=== PATIENT | male | born 1995 | race Caucasian/White ===

== ENCOUNTER 2021-04-05 11:40 | Outpatient (REF) | payer BC, SELFPAY ==
--- NOTE | ~2021-04-05 | XR_ITS ---
EXAMINATION: XR LUMBOSACRAL SPINE CLINICAL INFORMATION: Low back pain COMPARISON: None TECHNIQUE: Three views of the lumbosacral spine. XR/XR lumbar spine 2-3V FINDINGS AND IMPRESSION: The vertebral bodies have normal height and alignment. There is straightening of the lumbar lordosis, possibly due to paraspinal muscle spasm. The disc spaces are maintained. No evidence of degenerative disc disease. No pars interarticularis defect or vertebral compression fracture. The anterior and posterior elements are intact. No lytic or osteoblastic lesion. Sacrum and sacroiliac joints are normal. Soft tissues are grossly normal.
== END 2021-04-05 11:41 | disposition home or self-care (01) ==
LOC: HO.HMGCX 11:40
PROVIDERS: Visit Provider Nurse Practitioner Family
DX: M54.50 Low back pain, unspecified (principal)
CPT/HCPCS: 72100

== ENCOUNTER 2021-04-29 12:30 | Outpatient (REF) | payer BC, SELFPAY ==
[2021-04-29 14:02] LABS: Appearance Urine CLEAR; Color Urine YELLOW; Glucose Urine UA NEG (NEG); Leukocyte Esterase Urine NEG (NEG); Nitrite Urine NEG (NEG); Specific Gravity - Urine 1.025 (1.005-1.025); Urine Blood NEG (NEG); Urine Ketones NEG (NEG); Urine Protein NEG (NEG-TRACE)
[2021-04-29 14:19] LABS: Alanine Aminotransferase 54 U/L (0-40); Albumin Level 4.4 g/dL (3.5-5.0); Alkaline Phosphatase 83 U/L (39-117); Anion Gap 14 (12-20); Aspartate Amino Transferase 24 U/L (5-37); Bilirubin Total 0.6 mg/dL (0.0-1.0); Blood Urea Nitrogen 17 mg/dL (9-16); Carbon Dioxide 25 mmol/L (22-29); Chloride 107 mmol/L (96-108); Cholesterol 186 mg/dL; Estimated Glomerular Filt Rate > 60; Glucose Fasting 94 mg/dL (60-99); HDL Cholesterol 37 mg/dL; LDL Cholesterol Calculated 131 mg/dl; Potassium 4.6 mmol/L (3.3-5.1); Sodium 141 mmol/L (135-145); Total Protein 7.1 g/dL (6.5-8.0); Triglycerides 90 mg/dL
[2021-04-29 14:30] LABS: TSH reflex Free T4 1.37 uIU/mL (0.32-4.0)
== END 2021-04-29 12:31 | disposition home or self-care (01) ==
LOC: HO.HMGCLDS 12:30
PROVIDERS: Visit Provider Nurse Practitioner Family
DX: Z00.00 Encounter for general adult medical examination without abnormal findings (principal)
CPT/HCPCS: 36415; 80053; 80061; 81003; 84443

== ENCOUNTER 2021-06-19 11:00 | Outpatient (RCR) | payer BC, SELFPAY ==
--- NOTE | 2021-02-05 15:07 | MHC.PT.EP ---
[facility] [place] Office [place] Office [place] Office [address] [phone] F: [phone] F: [phone] F: [phone] F: [phone] Physical Therapy Plan of Care Date of Evaluation: Date of Surgery: n/a Diagnosis: sciatica Assessment: Patient is a 25 year old R handed female who presents with s/s consistent with sciatica. He does not currently work and is mostly sitting/sedentary during the day. Patient past medical history is unremarkable. Current impairments include pain, body mechanics, activity tolerance and functional mobility. Functional limitations include decreased ability to walk, stand, transfer, squat, lift, carry, bend, negotiate stairs, and perform weight bearing activities.. Patient is motivated with good rehab potential. Skilled PT will address impairments and functional limitations in order to achieve goals. Frequency and Duration: The patient will be seen 2x/week for 5 weeks Short Term Goals: I with HEP - 2 weeks Demo proper squat mechanics - 3 weeks Normal gastroc flexiblity - 3 weeks Care Home Goals: 90/90 lacking < 20 - 5 weeks Oswestry 10% or less - 5 weeks Treatment Plan: Modalities to reduce pain, spasms and effusion. Manual therapy to restore motion and function. Therapeutic exercise to improve strength and flexibility. Neuromuscular re-education for posture and balance. Therapeutic activities to return to functional activities of daily living. Electronically signed by: Darren Banks PT Please sign and return to therapist. Thank you for your referral.
--- NOTE | 2021-10-10 09:26 | MHC.PT.DC ---
[facility] [place] Office [place] Office [place] Office [address] Xu Barrios [address] [phone] F: [phone] F: [phone] F: [phone] F: [phone] Physical Therapy Discharge Report Diagnosis: sciatica Date of Surgery: n/a Date of Evaluation: 02/04/21 Date of Discharge: 08/11/21 Treatments to Date: 14 Cancellations to Date: No Shows to Date: Discharge Status: Improved Function Independent with HEP Discharge Summary: Pt is I with HEP and has good understanding of how to manage s/s. We decided to d/c to HEP at this time. 06/19/21: s/s are still present to lesser degree. stable with daily activities. we are still working with body mechanics/postural awareness as pt still has difficulty controlling position of lumbar spine and pelvic with squatting activities. 06/07/21: pt progressing with leg strength, reduced discomfort with daily/work activities. he has been responding well since transition to traction + strength and stretch program. 05/31/21: pt progressing very well overall with skilled PT with focus on LE/core strength. Planning to golf this . 05/24/21: pt progressing well with low back pain. still with some discomfort in legs possible due to fatigue and lack of physical activity during work week. 05/16/21: educated thoroughly on HEP and attempt to reduce apparent discal pathology of spine. assess response NV. 05/03/21: we decided to [place] [facility], as pt was responding well to this before we pursued imaging to rule out any contraindications. we will assess response NV. 04/29/21: pt with less s/s overall. managing well with stretching program. encouraged him to work hip/core strength as well. 04/26/21: pt with some s/s into R LE following train ride. encouraged to stretch through weekend and to perform MARANDA as indicated. educated in centralization Progressing well but still requires significant cues for neutral spine. Follows cues well and able to improved independence within today's appointment. Electronically signed by: Darren Banks, PT Please sign and return to therapist. Thank you for your referral.
== END 2021-10-10 09:26 | disposition home or self-care (01) ==
LOC: HO.PTCHIC 11:00
PROVIDERS: PCP Nurse Practitioner Family; Visit Provider Nurse Practitioner Family
DX: M54.30 Sciatica, unspecified side (principal)
CPT/HCPCS: 97012; 97110; 97112; 97140; 97161; 97530

== ENCOUNTER 2022-04-07 10:42 | Outpatient (REF) | payer BC, SELFPAY ==
[2022-04-07 13:50] LABS: MANUAL DIFF FLAG NO
[2022-04-07 14:05] LABS: Basophils Absolute Auto 0.1 X10*3/uL (0.0-0.2); Basophils Percent Auto 0.7 % (0-2); Eosinophils Absolute Auto 0.1 X10*3/uL (0.0-0.4); Eosinophils Percent Auto 1.4 % (0-4); Hematocrit 47.6 % (42.0-52.0); Hemoglobin 15.7 g/dl (14.0-18.0); Imm Gran Abs Auto 0.05 X10*3/uL (0.00-0.03); Imm Gran Pct Auto 0.6 % (0.0-0.4); Lymphocytes Absolute Auto 2.1 X10*3/uL (1.2-4.9); Lymphocytes Percent Auto 23.2 % (20-40); Mean Corpuscular Hemoglobin 28.4 pg (27.0-33.0); Mean Corpuscular Volume 86.1 fL (80.0-98.0); Mean Platelet Volume 11.3 fL (9.4-12.4); Monocytes Absolute Auto 0.8 X10*3/uL (0.1-1.2); Monocytes Percent Auto 8.3 % (2-11); Neutrophils Percent Auto 65.8 % (45-73); Platelet Count 250 X10*3/uL (160-400); Red Blood Count 5.53 X10*6/uL (4.60-5.80); Red Cell Distribution Width 12.4 % (11.0-16.0); White Blood Count 9.1 X10*3/uL (4.8-10.8)
[2022-04-07 14:08] LABS: Appearance Urine Turbid; Color Urine Yellow; Glucose Urine UA Negative (Negative); Leukocyte Esterase Urine Negative (Negative); Nitrite Urine Negative (Negative); PH 5.5 (5.0-9.0); Specific Gravity - Urine 1.025 (1.005-1.025); Urine Blood Negative (Negative); Urine Ketones Negative (Negative); Urine Protein Negative (Neg-Trace)
[2022-04-07 14:51] LABS: Alanine Aminotransferase 29 U/L (0-40); Albumin Level 4.2 g/dL (3.5-5.0); Alkaline Phosphatase 86 U/L (39-117); Anion Gap 11 (12-20); Aspartate Amino Transferase 15 U/L (5-37); Bilirubin Total 0.4 mg/dL (0.0-1.0); Blood Urea Nitrogen 15 mg/dL (9-16); Calcium 9.3 mg/dL (8.4-10.2); Carbon Dioxide 27 mmol/L (22-29); Chloride 107 mmol/L (96-108); Cholesterol 180 mg/dL; Estimated Glomerular Filt Rate > 60; Glucose Fasting 93 mg/dL (60-99); Glucose Random 92 mg/dL (60-115); HDL Cholesterol 36 mg/dL; LDL Cholesterol Calculated 124 mg/dl; Potassium 4.4 mmol/L (3.3-5.1); Sodium 141 mmol/L (135-145); Total Protein 6.6 g/dL (6.5-8.0); Triglycerides 100 mg/dL
[2022-04-07 14:58] LABS: TSH reflex Free T4 1.27 uIU/mL (0.32-4.0)
== END 2022-04-07 10:43 | disposition home or self-care (01) ==
LOC: HO.HMGCLDS 10:42
PROVIDERS: PCP Nurse Practitioner Family; Visit Provider Nurse Practitioner Family
DX: I10 Essential (primary) hypertension (principal)
CPT/HCPCS: 36415; 80053; 80061; 81003; 84443; 85025

== ENCOUNTER → 2022-08-19 09:58 | Outpatient (BNVA) | payer BC, SELFPAY | PROVIDERS: PCP Nurse Practitioner Family; Visit Provider Nurse Practitioner Family ==

== ENCOUNTER 2022-10-06 15:28 | Outpatient (AMB) | payer BC, SELFPAY ==
[2022-10-06 15:37] VITALS: BP 132/78; PULSE 71; O2SAT 97; BMI 30.8
--- NOTE | 2022-10-06 15:37 | MHC.OFFVIS ---
Intake Vital Signs 10/06/22 15:37 Height 6 ft Weight 227 lb 2 oz BMI 30.8 Intake Visit Reasons: Abdominal pain Intake Note: pt is here for lower right back pain that he says is off and on for about 2 months or so Allergies No Known Allergies Allergy (Verified 08/19/22 10:03) PFSH Surgical History (Updated 08/19/22 @ 10:05 by Davina March CMA) [place] teeth removed Family History (Updated 08/19/22 @ 10:06 by Davina March CMA) Father Skin cancer HTN (hypertension) Social History (Updated 08/19/22 @ 10:06 by Davina March CMA) Housing: House Alcohol intake: current Alcohol intake frequency: holidays/special occasions only Patient Tobacco Use Status: Never used Tobacco e-Cigarette/Vaping Use: Never Used Second Hand Smoke Exposure: No service: No Current occupational status: employed Current occupation: [employer] Current occupational exposures/hazards: No Cognitive needs: No Hearing needs: No Vision needs: No Coding Diagnoses
--- NOTE | 2022-10-06 15:40 | A.OFFPC_ITS ---
Vital Signs 10/06/22 15:37 Height 6 ft Weight 227 lb 2 oz BMI 30.8 BP 132/78 Blood Pressure Location Rt brachial Position Sitting Pulse 71 Pulse Source Pulse Oximeter Pulse Oximetry (%) 97 Oxygen Delivery Method Room Air Intake Visit Reasons: Abdominal pain Intake Note: pt is here for lower right back pain that he says is off and on for about 2 months or so Allergies No Known Allergies Allergy (Verified 10/06/22 15:40) Medication List - Last Reconciled 10/06/22 by Moises Lynn [facility] cholecalciferol (vitamin D3) 25 mcg PO DAILY loratadine (Claritin) 10 mg PO DAILY 90 days losartan 50 mg PO DAILY propranolol ER 80 mg PO DAILY Tobacco use date assessed: 10/06/22 Dental Screening Dental Screen Date: 10/06/22 Did you have a dental visit in the last 12 months?: Yes Did you have a dental problem in the last 6 months where you did not have access to dental care?: No Was dental information given to patient?: Patient has dentist HPI Abdominal pain HPI Details HTN: Blood pressure is stable, managed with losartan 50mg and propranolol 80mg. Denies chest pain, shortness of breath, and dizziness. Pt c/o right flank pain. He reports that the pain is worse when he drinks alcohol. Pt does not have a hx of kidney stones. Will order renal US. Denies fever, chills, and hematuria. Pt has a new sexual partner and would like STD testing, though denies any symptoms. Will order. Pt reports chronic sinusitis. Will order sinus xr and refer to ENT. [facility] Surgical History (Updated 08/19/22 @ 10:05 by Davina March CMA) [place] teeth removed Family History (Updated 08/19/22 @ 10:06 by Davina aMrch CMA) Father Skin cancer HTN (hypertension) Social History (Updated 08/19/22 @ 10:06 by Davina March CMA) Housing: House Alcohol intake: current Alcohol intake frequency: holidays/special occasions only Patient Tobacco Use Status: Never used Tobacco e-Cigarette/Vaping Use: Never Used Second Hand Smoke Exposure: No service: No Current occupational status: employed Current occupation: [employer] Current occupational exposures/hazards: No Cognitive needs: No Hearing needs: No Vision needs: No Questionnaire Thrive Questionnaire Date Thrive assessed: 04/30/22 LIAM-7 AMB Questionnaire LIAM-7 Date LIAM - 7 assessed: 04/30/22 Source: Developed by Drs. Mario Englsih, Becca Rehman, Natalio Gunderson and colleagues, with an educational maxine from [employer]. Review of Systems Const Reports as per HPI Physical exam (Primary Care) Vital Signs: Last Vital Signs Pulse 71 10/06/22 15:37 BP 132/78 10/06/22 15:37 Pulse Ox 97 10/06/22 15:37 Oxygen Delivery Method Room Air 10/06/22 15:37 BMI result Body Mass Index 30.8 Tobacco/Smoking Status: Tobacco use Status Tobacco use date assessed 10/06/22 10/06/22 15:43 Patient Tobacco Use Status Never used Tobacco 10/06/22 15:40 e-Cigarette/Vaping Use Never Used 10/06/22 15:40 Thrive Assessment: Date of Thrive Assessment Date Thrive assessed 04/30/22 10/06/22 15:40 Const General: cooperative Orientation/consciousness: patient oriented x3 Resp Effort & Inspection: normal respiratory effort Auscultation: clear to auscultation bilaterally Cardio Rate: regular rate Rhythm: regular rhythm Heart sounds: S1 normal heart sound present and S2 normal heart sound present General: Yes no CVA tenderness Back/Spine/Pelvis Other: no increase in discomfort with turning upper torso side to side, and palpation to lower transverse back Back: no CVA tenderness Neuro General: patient oriented x3 Psych Appearance: grossly normal Mental Status: mental status grossly normal Speech and movement: Normal speech and movement present Affect: normal affect Attitude: cooperative Thought process: Normal thought process present Thought content: Normal thought content present Insight: Good insight present (Psych) Judgement: Good judgement present (Psych) Assessment and Plan Assessment & Plan (1) Right flank pain: Code(s): R10.9 - Unspecified abdominal pain Plan: US ordered (2) HTN (hypertension): Code(s): I10 - Essential (primary) hypertension Plan: Labs ordered (3) Screening for STD (sexually transmitted disease): Code(s): Z11.3 - Encounter for screening for infections with a predominantly sexual mode of transmission Plan: STD testing ordered (4) Chronic sinusitis: Code(s): J32.9 - Chronic sinusitis, unspecified Plan: XR ordered, referred to ENT Plan The patient agreed to the use of a medical laboratory specialist for this encounter. Scribed for NEHA Yancey- by Anna Herr medical laboratory specialist, on 10/06/2022 at 15:50 EST. Orders: Orders US renal RT Today R10.9 - Unspecified abdominal pain Comprehensive Met. Panel Today I10 - Essential (primary) hypertension, R10.9 - Unspecified abdominal pain Complete Blood Count Auto Diff Today I10 - Essential (primary) hypertension, R10.9 - Unspecified abdominal pain UA CC w/rflx Micro + Cult Today I10 - Essential (primary) hypertension, R10.9 - Unspecified abdominal pain CT NG by PCR Today Z11.3 - Encounter for screening for infections with a predominantly sexual mode of transmission HIV Ab/Ag Today Z11.3 - Encounter for screening for infections with a predominantly sexual mode of transmission Syphilis Screen Today Z11.3 - Encounter for screening for infections with a predominantly sexual mode of transmission Urine Culture Today R10.9 - Unspecified abdominal pain XR sinus min 3V Today J32.9 - Chronic sinusitis, unspecified Referrals Ear/Nose/Throat Referral J32.9 - Chronic sinusitis, unspecified Coding Level of Care Code Est Pt Level 3 (72660) Diagnoses Right flank pain R10.9 HTN (hypertension) I10 Screening for STD (sexually transmitted disease) Z11.3 Chronic sinusitis J32.9
== END 2022-10-06 16:17 | disposition home or self-care (01) ==
PROVIDERS: PCP Nurse Practitioner Family; Visit Provider Nurse Practitioner Family
DX: R10.9 Unspecified abdominal pain (principal); I10 Essential (primary) hypertension; Z11.3 Encounter for screening for infections with a predominantly sexual mode of transmission; J32.9 Chronic sinusitis, unspecified
CPT/HCPCS: 99213

== ENCOUNTER 2022-10-07 12:56 | Outpatient (REF) | payer BC, SELFPAY ==
--- NOTE | ~2022-10-07 | XR_ITS ---
EXAMINATION: XR SINUSES CLINICAL INFORMATION: Chronic sinusitis COMPARISON: Sinus x-rays February 13, 2010 TECHNIQUE: 3 views of the sinuses were obtained. FINDINGS: Frontal sinuses are well aerated. Maxillary sinuses are well aerated. Ethmoid sinuses appear well aerated. Mastoid air cells are well aerated. No acute osseous abnormality. XR/XR sinus min 3V IMPRESSION: No radiographic evidence to suggest acute sinusitis.
[2022-10-07 16:09] LABS: MANUAL DIFF FLAG NO
[2022-10-07 16:15] LABS: Basophils Absolute Auto 0.1 X10*3/uL (0.0-0.2); Basophils Percent Auto 0.7 % (0-2); Eosinophils Absolute Auto 0.2 X10*3/uL (0.0-0.4); Eosinophils Percent Auto 1.4 % (0-4); Hematocrit 46.8 % (42.0-52.0); Hemoglobin 15.4 g/dl (14.0-18.0); Imm Gran Abs Auto 0.05 X10*3/uL (0.00-0.03); Imm Gran Pct Auto 0.4 % (0.0-0.4); Lymphocytes Absolute Auto 2.7 X10*3/uL (1.2-4.9); Mean Corpuscular HGB Conc 32.9 g/dl (31.0-36.0); Mean Corpuscular Hemoglobin 28.6 pg (27.0-33.0); Mean Platelet Volume 11.4 fL (9.4-12.4); Monocytes Absolute Auto 0.9 X10*3/uL (0.1-1.2); Monocytes Percent Auto 7.8 % (2-11); Neutrophils Absolute Auto 7.4 x10*3/uL (2.0-8.3); Neutrophils Percent Auto 65.7 % (45-73); Platelet Count 276 X10*3/uL (160-400); Red Blood Count 5.38 X10*6/uL (4.60-5.80); Red Cell Distribution Width 12.7 % (11.0-16.0); White Blood Count 11.3 X10*3/uL (4.8-10.8)
[2022-10-07 16:27] LABS: Appearance Urine Turbid; Color Urine Yellow; Glucose Urine UA Negative (Negative); Leukocyte Esterase Urine Negative (Negative); Nitrite Urine Negative (Negative); PH 5.5 (5.0-9.0); Specific Gravity - Urine 1.025 (1.005-1.025); Urine Blood Negative (Negative); Urine Ketones Trace mg/dL (Negative); Urine Protein Negative (Neg-Trace)
[2022-10-07 16:32] LABS: Alanine Aminotransferase 23 U/L (0-40); Albumin Level 4.6 g/dL (3.5-5.0); Alkaline Phosphatase 79 U/L (39-117); Anion Gap 13 (12-20); Aspartate Amino Transferase 18 U/L (5-37); Bilirubin Total 0.5 mg/dL (0.0-1.0); Blood Urea Nitrogen 15 mg/dL (9-16); Calcium 9.8 mg/dL (8.4-10.2); Carbon Dioxide 27 mmol/L (22-29); Chloride 105 mmol/L (96-108); Estimated Glomerular Filt Rate > 60; Glucose Random 85 mg/dL (60-115); Potassium 4.4 mmol/L (3.3-5.1); Sodium 141 mmol/L (135-145); Total Protein 7.5 g/dL (6.5-8.0)
[2022-10-07 18:08] LABS: CT PCR NOT DETECTED (Not Detect.); NG PCR NOT DETECTED (Not Detect.)
[2022-10-08 03:39] LABS: Syphilis Screen Nonreactive (Nonreactive)
[2022-10-08 03:41] LABS: HIV AB/AG Nonreactive (Nonreactive); HIV Num 1 0.05 S/CO (0.00-0.99)
== END 2022-10-07 12:57 | disposition home or self-care (01) ==
LOC: HO.HMGCX 12:56
PROVIDERS: PCP Nurse Practitioner Family; Visit Provider Nurse Practitioner Family
DX: Z11.4 Encounter for screening for human immunodeficiency virus [HIV] (principal); I10 Essential (primary) hypertension; R10.9 Unspecified abdominal pain; J32.9 Chronic sinusitis, unspecified; Z20.2 Contact with and (suspected) exposure to infections with a predominantly sexual mode of transmission
CPT/HCPCS: 0353U; 70220; 80053; 81003; 85025; 86780; 87086; 87389

== ENCOUNTER 2022-10-09 07:25 | Outpatient (REF) | payer BC, SELFPAY ==
[2022-10-09 11:17] LABS: MANUAL DIFF FLAG NO
[2022-10-09 11:32] LABS: Basophils Absolute Auto 0.1 X10*3/uL (0.0-0.2); Basophils Percent Auto 0.6 % (0-2); Eosinophils Absolute Auto 0.1 X10*3/uL (0.0-0.4); Eosinophils Percent Auto 1.5 % (0-4); Hematocrit 46.1 % (42.0-52.0); Hemoglobin 15.3 g/dl (14.0-18.0); Imm Gran Abs Auto 0.04 X10*3/uL (0.00-0.03); Imm Gran Pct Auto 0.5 % (0.0-0.4); Lymphocytes Absolute Auto 2.1 X10*3/uL (1.2-4.9); Lymphocytes Percent Auto 23.2 % (20-40); Mean Corpuscular HGB Conc 33.2 g/dl (31.0-36.0); Mean Corpuscular Hemoglobin 28.5 pg (27.0-33.0); Mean Corpuscular Volume 85.8 fL (80.0-98.0); Mean Platelet Volume 11.2 fL (9.4-12.4); Monocytes Absolute Auto 0.7 X10*3/uL (0.1-1.2); Monocytes Percent Auto 8.4 % (2-11); Neutrophils Absolute Auto 5.8 x10*3/uL (2.0-8.3); Neutrophils Percent Auto 65.8 % (45-73); Platelet Count 248 X10*3/uL (160-400); Red Blood Count 5.37 X10*6/uL (4.60-5.80); Red Cell Distribution Width 12.5 % (11.0-16.0); White Blood Count 8.8 X10*3/uL (4.8-10.8)
[2022-10-09 12:00] LABS: Alanine Aminotransferase 21 U/L (0-40); Albumin Level 4.4 g/dL (3.5-5.0); Alkaline Phosphatase 78 U/L (39-117); Anion Gap 11 (12-20); Aspartate Amino Transferase 14 U/L (5-37); Bilirubin Total 0.5 mg/dL (0.0-1.0); Blood Urea Nitrogen 16 mg/dL (9-16); Calcium 9.9 mg/dL (8.4-10.2); Carbon Dioxide 27 mmol/L (22-29); Chloride 107 mmol/L (96-108); Estimated Glomerular Filt Rate > 60; Glucose Random 88 mg/dL (60-115); Sodium 141 mmol/L (135-145); Total Protein 7.2 g/dL (6.5-8.0)
== END 2022-10-09 07:26 | disposition home or self-care (01) ==
LOC: HO.HMGCLDS 07:25
PROVIDERS: PCP Nurse Practitioner Family; Visit Provider Nurse Practitioner Family
DX: D72.829 Elevated white blood cell count, unspecified (principal)
CPT/HCPCS: 36415; 80053; 85025

== ENCOUNTER 2022-10-24 12:50 | Outpatient (REF) | payer BC, SELFPAY ==
--- NOTE | ~2022-10-24 | US_ITS ---
EXAMINATION: US RETROPERITONEAL LIMITED (RENAL ONLY) CLINICAL INFORMATION: Right flank pain. COMPARISON: None available. TECHNIQUE: Renal ultrasound was performed. FINDINGS: RIGHT KIDNEY: 12.0 x 4.7 x 6.6 cm (SAG x AP x TRV). The kidney is normal in size, contour, and echogenicity. Renal cortical thickness is normal. No calculi or focal parenchymal lesions. No hydronephrosis. LEFT KIDNEY: 12.1 x 5.6 x 5.2 cm (SAG x AP x TRV). The kidney is normal in size, contour, and echogenicity. Renal cortical thickness is normal. No calculi or focal parenchymal lesions. No hydronephrosis. US/US renal BI IMPRESSION: Normal renal ultrasound. No nephrolithiasis or hydronephrosis.
== END 2022-10-24 12:51 | disposition home or self-care (01) ==
LOC: HO.HMGCX 12:50
PROVIDERS: PCP Nurse Practitioner Family; Visit Provider Nurse Practitioner Family
DX: R10.9 Unspecified abdominal pain (principal)
CPT/HCPCS: 76775

== ENCOUNTER 2023-03-12 07:34 | Outpatient (AMB) | payer BC, SELFPAY ==
--- NOTE | 2023-03-12 07:25 | MHC.PC.OV ---
Intake Visit Reasons: Gastro issue [phone] Allergies No Known Allergies Allergy (Verified 10/06/22 15:40) Medication List - Last Reconciled 03/12/23 by NEHA FonsecaMEENAKSHI cholecalciferol (vitamin D3) 25 mcg PO DAILY loratadine (Claritin) 10 mg PO DAILY 90 days losartan 50 mg PO DAILY pantoprazole 20 mg PO DAILY propranolol ER 80 mg PO DAILY Tobacco use date assessed: 10/06/22 HPI Gastro issue [phone] HPI Details Pt was seen in the ER on 03/05 c/o chest pain. EKG was nonischemic. CBX showed mild leukocytosis, pt had no signs of infection. CMP was WNL. Troponin was negative. Pt's symptoms were thought to be related to GERD. Pt reports some ongoing chest tightness. He reports that this is worse after eating. He has been taking prilosec which helps somewhat. Will order stress test and echo to rule out cardiac issues. Will also send pantoprazole in place of prilosec. Denies fever, chills, and N/V/D. Will follow up with him in the near future. [facility] Surgical History [place] teeth removed Family History Father Skin cancer HTN (hypertension) Social History Housing: House Alcohol intake: current Alcohol intake frequency: holidays/special occasions only Patient Tobacco Use Status: Never used Tobacco e-Cigarette/Vaping Use: Never Used Second Hand Smoke Exposure: No service: No Current occupational status: employed Current occupation: [employer] Current occupational exposures/hazards: No Cognitive needs: No Hearing needs: No Vision needs: No Questionnaire Thrive Questionnaire Date Thrive assessed: 04/30/22 LIAM-7 AMB Questionnaire LIAM-7 Date LIAM - 7 assessed: 04/30/22 Source: Developed by Drs. Mario English, Becca Rehman, Natalio Gunderson and colleagues, with an educational maxine from [employer]. Review of Systems Const Reports as per HPI Physical exam (Primary Care) Tobacco/Smoking Status: Tobacco use Status Tobacco use date assessed 10/06/22 03/12/23 07:26 Patient Tobacco Use Status Never used Tobacco 03/12/23 07:26 e-Cigarette/Vaping Use Never Used 03/12/23 07:26 Thrive Assessment: Date of Thrive Assessment Date Thrive assessed 04/30/22 03/12/23 07:26 Const General: cooperative Orientation/consciousness: patient oriented x3 Neuro General: patient oriented x3 Psych Appearance: grossly normal Mental Status: mental status grossly normal Speech and movement: Clear speech present Affect: normal affect Attitude: cooperative Thought process: Normal thought process present Thought content: Normal thought content present Insight: Good insight present (Psych) Judgement: Good judgement present (Psych) Telehealth Telehealth Location of provider rendering services: practice address Location of patient: address on file Patient Identification confirmed using: Name, : Yes Telehealth method: video Patient verbally consented to treatment: Yes Patient verbally consented to billing insurance company: Yes Patient informed of any privacy concerns related to visit: Yes Minutes spent on Phone/Video with Pt.: 10 Assessment and Plan Assessment & Plan (1) Chest discomfort: Code(s): R07.89 - Other chest pain Plan: knows to go to the ER with worsening symptoms, will follow up with pt, echo/stress test ordered, starting pantoprazole Plan The patient agreed to the use of a medical equipment repair technician for this encounter. Scribed for MEGAN Yancey by Anna Herr medical equipment repair technician, on 03/12/2023 at 07:25 EST. Orders: Orders CA stress test Today R07.89 - Other chest pain CA echo transthoracic complete Today R07.89 - Other chest pain Medications: New pantoprazole 20 mg PO DAILY 90 tabs 0RF Coding Level of Care Code Tele Est Pt Level 3 (83525) Diagnoses Chest discomfort R07.89
== END 2023-03-12 10:24 | disposition home or self-care (01) ==
PROVIDERS: PCP Nurse Practitioner Family; Visit Provider Nurse Practitioner Family
DX: R07.89 Other chest pain (principal)
CPT/HCPCS: 99213

== ENCOUNTER → 2023-04-09 07:55 | Outpatient (REF) | payer BC, SELFPAY ==
--- NOTE | 2023-04-09 07:59 | CA_ITS ---
Transthoracic Echocardiogram Patient (Last, First, Middle): Daquan Weiss, Gender: Male Date of : 1995 Age: 27 Procedure Date: 04/09/2023 Procedure Type: Transthoracic Echocardiogram Location: OP Height: 182. cm Weight: 101.15 kg BSA: 2.22 m2 Heart Rate: 63 bpm BP: 128 / 80 mmHg Fire Chief'S Aide: RENA Aguilar MD: Moises Lynn [facility] Framing Mechanic: Amadeo Moore MD Symptoms: R07.89 - Other chest pain Study Quality: Fair ECG Rhythm: Arrhythmia Conclusions: - Essentially normal study Findings Left Ventricle Normal left ventricular size, thickness, and systolic function. The visually estimated ejection fraction is between 60-65%. Diastolic function is normal for age. Strain imaging appears to be not tracking adequately and therefore measurements appear to be unreliable. Right Ventricle Normal right ventricular cavity size and systolic function. Atria Both atria are normal in size. Interatrial shunt cannot be excluded. Aortic Valve Normal aortic valve structure and function. There is no aortic valve stenosis. There is no aortic valve regurgitation. Mitral Valve Normal mitral valve structure and function. There is trace mitral valve regurgitation. There is no mitral valve stenosis. Pulmonic Valve The pulmonic valve is likely normal. There is trace pulmonic valve regurgitation. Tricuspid Valve Normal tricuspid valve structure. There is trace tricuspid valve regurgitation. The right ventricular systolic pressure is normal. The right ventricular systolic pressure is 20 mmHg. Normal right atrial pressure. There is no evidence of pulmonary hypertension. Great Vessels All visible segments of the aorta are normal in size. The pulmonary artery was not well visualized. Venous The inferior vena cava is normal in size and collapses greater than 50% with inspiration. Pericardium/Pleural There is no evidence of pericardial effusion. Prior Study Comparison No prior study available for comparison. Measurements 2D Linear Measurements IVSd: 0.94 0.6-0.9/0.6-1.0 cm LVIDd: 5.43 3.9-5.3/4.2-5.9 cm LVIDd Index: 2.45 2.4-3.2/2.2-3.1 cm/m2 LVIDs: 3.57 2.0-3.6 cm LVPWd: 1.00 0.7-1.1 cm LA Diam: 4.30 2.7-3.8/3.0-4.0 cm LAIDs Index: 1.94 1.5-2.3 cm/m2 LV Mass: 248.97 67-162/88-224 g LV Mass Index: 112.15 43-95/49-115 g/m2 LVOT Diam: 2.10 3.0+(-)1.3 cm Mitral Valve MV Pk E: 0.80 MV PK A: 0.65 MV Decel Time: 161.00 E/A: 1.20 E'Lateral: 13.30 E'Medial: 10.30 E/E' Med: 7.70 E/E' Lat: 6.00 PHT: 47.00 MVA PHT: 4.68 Decel Gu[place]upe: 4.95 Aortic Valve AoV Pk Tigre: 1.19 AoV Mn Tigre: 0.82 AoV VTI: 0.26 AoV Pk Grad: 6.00 Aov Mn Grad: 3.00 JOO Cont.VTI: 2.82 LVOT LVOT Pk Tigre: 1.01 LVOT Mn Tigre: 0.67 LVOT VTI: 0.21 LVOT Pk Grad: 4.00 LVOT Mn Grad: 2.00 LVOT Diam: 2.10 LVOT Area: 3.46 Diastolic Function MV Pk E: 0.80 MV Pk A: 0.65 E/A: 1.20 E'Medial: 10.30 E/E' Med: 7.70 E' Laterial: 13.30 E/E' Lat: 6.00 Right Ventricle TAPSE (mm): 21.70 TVS' Tigre: 11.70 Tricuspid Valve TR Pk Tigre: 1.74 TR Pk Grad: 12.00 RA Press: 8.00 RVSP: 20.00 Great Vessels Aorta Ao Asc: 3.00 2.1-3.4 cm Pulmonary Valve PV Pk Tigre: 0.75 Peak PV Grad: 2.00 Updated in Other Vendor System with Status of Final Amadeo Moore MD electronically signed on 04/10/2023 2:32:29 PM with status of Final
--- NOTE | 2023-04-09 07:59 | CA_ITS ---
Acquisition Time: 2023-04-09 08:36:53 Total Exercise Time: 00:12:31 Test Indications: CHEST PAIN Medications: LORATADINE LOSARTAN PANTOPRAZOLE PROPRANOLOL Protocol: YVETTE Max HR: 179 BPM 92% of Pred: 193 BPM Max BP: 184/060 mmHG Max Work Load: 14.3 METS Exercise stress test exercise 12 min 31 sec of Yvette protocol achieving 92% MPHR, with mild SOB, no chest discomfort, without arrhythmais, with normotensicve repsonse to exercise, without EKG changes. Test reviewed with Dr. Ambrosio. Referred By: Moises Lynn Overread By: Charity Aceves
== END ==
LOC: HO.CARD 07:55
PROVIDERS: PCP Nurse Practitioner Family; Visit Provider Nurse Practitioner Family
DX: R07.89 Other chest pain (principal)
CPT/HCPCS: 93017; 93306

== ENCOUNTER → 2023-04-09 07:59 | Outpatient (BNV) | payer BC, SELFPAY | PROVIDERS: PCP Nurse Practitioner Family; Visit Provider Internal Medicine Cardiovascular Disease | DX: R06.02 Shortness of breath (principal); R07.89 Other chest pain | CPT/HCPCS: 93016; 93018; 93306 ==

== ENCOUNTER 2023-05-05 14:54 | Outpatient (AMB) | payer BC, SELFPAY ==
[2023-05-05 14:57] VITALS: BP 128/70; PULSE 62; O2SAT 97; BMI 31.1
--- NOTE | 2023-05-05 14:57 | MHC.PC.OV ---
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 Accompanied by: Self / Same As Patient Allergies No Known Allergies Allergy (Verified 05/05/23 17:12) Medication List - Last Reconciled 05/05/23 by MEGAN Fonseca cholecalciferol (vitamin D3) 25 mcg PO DAILY loratadine (Claritin) 10 mg PO DAILY 90 days losartan 50 mg PO DAILY pantoprazole 20 mg PO DAILY propranolol ER 80 mg PO DAILY Tobacco use date assessed: 05/05/23 Dental Screening Dental Screen Date: 05/05/23 Did you have a dental visit in the last 12 months?: Yes Did you have a dental problem in the last 6 months where you did not have access to dental care?: No Was dental information given to patient?: Patient has dentist HPI PE HPI Details Pt is here for a PE. Will order labs. PFSH Surgical History [place] teeth removed Family History Father Skin cancer HTN (hypertension) Social History Housing: House Alcohol intake: current Alcohol intake frequency: holidays/special occasions only Patient Tobacco Use Status: Never used Tobacco e-Cigarette/Vaping Use: Never Used Second Hand Smoke Exposure: No service: No Current occupational status: employed Current occupation: [employer] Current occupational exposures/hazards: No Cognitive needs: No Hearing needs: No Vision needs: No Questionnaire PHQ-9 Over the last 2 weeks, how often have you been bothered by any of the following problems? 1. Little interest or pleasure in doing things: not at all 2. Feeling down, depressed, or hopeless: not at all 3. Trouble falling or staying asleep, or sleeping too much: nearly every day 4. Feeling tired or having little energy: nearly every day 5. Poor appetite or overeating: several days 6. Feeling bad about yourself - or that you are a failure or have let yourself or your family down: several days 7. Trouble concentrating on things, such as reading the newspaper or watching television: not at all 8. Moving or speaking so slowly that other people could have noticed. Or the opposite - being so fidgety or restless that you have been moving around a lot more than usual: not at all 9. Thoughts that you would be better off or of hurting yourself in some way: not at all Total score: 8 Depression Screening Interpretation: Negative Depression Screening Done: Yes 95546 - PHQ-9 Billing: Yes Source: Developed by Drs. Mario English, Becca Rehman, Natalio Gunderson and colleagues, with an educational amxine from [employer]. Thrive Questionnaire Date Thrive assessed: 05/05/23 I am a: Patient What is your living situation today?: I have a steady place to live Within the past 12 months, did the food you bought not last and you didn't have the money to get more?: Never true Within the past 12 months, did you worry whether your food would run out before you got money to buy more?: Never true Do you have trouble paying for medicines?: No Do you have trouble getting transportation to medical appointments?: No Do you have trouble paying your heating and electricity bill?: No Do you have trouble taking care of your child, family member or friend?: No Do you have trouble with day-to-day activities such as bathing, preparing meals, shopping, managing finances, etc.?: No Are you currently unemployed and looking for a job?: No Are you interested in more education?: No Please select the resources that you would like help with: None Currently or been in a relationship where the following occur: no concerns reported THRIVE Score: 0 AUDIT C Alcohol Use Questionnaire (AUDIT-C) 1. How often do you have a drink containing alcohol?: 2-4 times a month 2. How many drinks containing alcohol do you have on a typical day when you are drinking?: 1 or 2 3. How often do you have six or more drinks on one occasion?: Less than monthly Total Score: 3 Score Reviewed/Action Taken: Yes LIAM-7 AMB Questionnaire LIAM-7 Date LIAM - 7 assessed: 05/05/23 Feeling nervous, anxious, or on edge: 2 = More than half the days Not being able to stop or control worryin = Not at all Worrying too much about different things: 0 = Not at all Trouble relaxin = More than half the days Being so restless that it is hard to sit still: 0 = Not at all Becoming easily annoyed or irritable: 1 = Several days Feeling afraid as if something awful might happen: 1 = Several days Total LIAM-7 score (0-4 normal; 5-9 mild; 10-14 moderate; 15-21 severe): 6 Source: Developed by Drs. Mario English, Becca Rehman, Natalio Gunderson and colleagues, with an educational maxine from [employer]. LIAM-7 Assessment Billing LIAM-7 Assessment Tool: LIAM-7 Assessment 37317 Review of Systems Const Denies chills and Denies fever(s) Eyes Denies blurry vision ENT Denies vertigo, Denies dizziness and Denies sore throat Card Denies chest pain at rest, Denies chest pain with activity, Denies diaphoresis, Denies dyspnea and Denies dyspnea on exertion Resp Denies cough, Denies dyspnea, Denies dyspnea on exertion and Denies wheezing GI Denies abdominal pain, Denies melena, Denies hematochezia, Denies constipation, Denies diarrhea and Denies loose stools Denies hematuria Musc Denies numbness and Denies tingling Skin/Breast Denies lesions Neuro Denies vertigo, Denies dizziness, Denies numbness and Denies tingling Psych Denies anxiety, Denies depression, Denies homicidal ideation, Denies suicidal ideation and Denies other (substance abuse) Aller/Immun Denies wheezing Physical exam (Primary Care) Vital Signs: Last Vital Signs Pulse 62 05/05/23 14:57 BP 128/70 05/05/23 14:57 Pulse Ox 97 05/05/23 14:57 Oxygen Delivery Method Room Air 05/05/23 14:57 BMI result Body Mass Index 31.1 Tobacco/Smoking Status: Tobacco use Status Tobacco use date assessed 05/05/23 05/05/23 14:59 Patient Tobacco Use Status Never used Tobacco 05/05/23 14:59 e-Cigarette/Vaping Use Never Used 05/05/23 14:59 PHQ-9: PHQ-9 Score PHQ-9: Total score 8 05/05/23 15:05 Depression Screening Interpretation: Negative Thrive Assessment: Date of Thrive Assessment Date Thrive assessed 05/05/23 05/05/23 14:59 Currently or been in a relationship where the following occur: no concerns reported Const General: cooperative Nutritional Appearance: obese Orientation/consciousness: patient oriented x3 HENMT Head: Yes normal to inspection, Yes normocephalic and Yes atraumatic Ears: TM's normal bilaterally Eyes General: appearance normal, both eyes and all related structures Alignment and Position: alignment normal and position normal Neck Neck: Yes normal visual inspection and Yes no lymphadenopathy Thyroid: Thyroid normal Resp Effort & Inspection: normal respiratory effort Auscultation: clear to auscultation bilaterally Cardio Rate: regular rate Rhythm: regular rhythm Heart sounds: S1 normal heart sound present, S2 normal heart sound present and no murmurs GI Palpation (GI): Soft to palpation and nontender Auscultation: normal bowel sounds General: Yes no CVA tenderness Male General Exam: Yes normal external exam Penis: normal penis Scrotum: scrotum normal, testes descended bilaterally and no inguinal hernias Testes: no testicular mass Back/Spine/Pelvis Back: no CVA tenderness Skin Rashes: no rashes Neuro General: patient oriented x3, moves all extremities, no focal motor deficits and deep tendon reflexes 2+ bilaterally Romberg Test: Negative Psych Appearance: grossly normal Mental Status: mental status grossly normal Speech and movement: Normal speech and movement present Affect: normal affect Attitude: cooperative Thought process: Normal thought process present Thought content: Normal thought content present Insight: Good insight present (Psych) Judgement: Good judgement present (Psych) Assessment and Plan Assessment & Plan (1) Physical exam: Code(s): Z00.00 - Encounter for general adult medical examination without abnormal findings Plan: Labs ordered Plan The patient agreed to the use of a medical surgical tech for this encounter. Scribed for MEGAN Yancey by Anna Herr medical surgical tech, on 05/05/2023 at 15:15 EST. Orders: Orders Comprehensive Anderson. Panel Fast Today Z00.00 - Encounter for general adult medical examination without abnormal findings TSH reflex Free T4 Today Z00.00 - Encounter for general adult medical examination without abnormal findings UA CC w/rflx Micro + Cult Today Z00.00 - Encounter for general adult medical examination without abnormal findings Complete Blood Count Auto Diff Today Z00.00 - Encounter for general adult medical examination without abnormal findings Lipid Panel Today Z00.00 - Encounter for general adult medical examination without abnormal findings Coding Level of Care Code Est Pt Prev Care 18-39y(45170) Diagnoses Physical exam Z00.00 Additional Codes LIAM-7 Assessment Billing - LIAM-7 Assessment Tool: LIAM-7 Assessment 01270 ([id number])
== END 2023-05-05 15:46 | disposition home or self-care (01) ==
PROVIDERS: Visit Provider Nurse Practitioner Family
DX: Z00.00 Encounter for general adult medical examination without abnormal findings (principal)
CPT/HCPCS: 99395

== ENCOUNTER 2023-10-29 08:16 | Outpatient (AMB) | payer BC, SELFPAY ==
[2023-10-29 08:18] VITALS: BP 122/80; PULSE 68; TEMP 36.6; O2SAT 97; BMI 31.6
--- NOTE | 2023-10-29 08:18 | MHC.OFFWIV ---
Intake Vital Signs 10/29/23 08:18 Height 6 ft Weight 233 lb BMI 31.6 BP 122/80 Blood Pressure Location Rt brachial Position Sitting Pulse 68 Pulse Source Pulse Oximeter Temp 97.8 F Temp Source Oral Pulse Oximetry (%) 97 Oxygen Delivery Method Room Air Intake Visit Reasons: EP Neck pain/headache Intake Note: pt c/o neck pain and headache. Started Thursday Patient Tobacco Use Status: Never used Tobacco Allergies No Known Allergies Allergy (Verified 10/29/23 08:18) Do you need a note to return to daycare/school/sports/work: No HPI EP Neck pain/headache HPI Details This note is constructed using voice recognition software. While every effort has been made to ensure accuracy, data power consultant errors may have been included. The patient is a 27 year old male who presents to the clinic today with 2 day history of neck pain and headache. He reports the neck pain to be on the right side of his traveling down into the top of his shoulder. The pain is typically dull and achy, but occasionally does have some sharp stabbing sensation. He denies numbness and tingling in his hands and feet. He denies any specific injury, however he does perform repetitive work at work. He has had this similar sensation and issue on the left side of his neck in the past, but he usually takes some ibuprofen and this resolves it. He did take ibuprofen and this seemed to help, but what helped more was using heat. He denies trauma to the area, surgery to the area, reduced range of motion, reduced strength. He also notes a headache in the forehead region bilaterally, intermittent, occurring up to 2 times per day. The pain lasts less than 1 hour, goes away without treatment, however at times he has taken ibuprofen and this is also completely resolve the pain. He reports a chronic history allergies to some unknown environmental exposure. He takes Claritin daily, however reports that he has had chronic rhinorrhea, and ear pressure, in his Claritin typically helps. He denies fever, chills, cough, shortness of breath, body aches. [facility] Surgical History [place] teeth removed Family History Father Skin cancer HTN (hypertension) Social History Housing: House Alcohol intake: current Alcohol intake frequency: holidays/special occasions only Patient Tobacco Use Status: Never used Tobacco e-Cigarette/Vaping Use: Never Used Second Hand Smoke Exposure: No service: No Current occupational status: employed Current occupation: [employer] Current occupational exposures/hazards: No Cognitive needs: No Hearing needs: No Vision needs: No Review of Systems Const All systems reviewed & are unremarkable except as noted in HPI and below Physical Exam Vital Signs: Last Vital Signs Temp 97.8 F 10/29/23 08:18 Pulse 68 10/29/23 08:18 BP 122/80 10/29/23 08:18 Pulse Ox 97 10/29/23 08:18 Oxygen Delivery Method Room Air 10/29/23 08:18 BMI result Body Mass Index 31.6 Const General: cooperative, healthy appearing, comfortable and no acute distress Orientation/consciousness: patient oriented x3 Limitations: no limitations HEENT Head: Yes normal to inspection Ears: hearing grossly normal bilaterally, external ears normal and TM abnormal retracted General nose exam: Normal external nose present, No nasal discharge present and Abnormal mucous membranes and turbinates present boggy and pale Face and sinus: Yes normal facial exam and Yes sinuses nontender Mouth: Normal oral and palatal mucosa present and moist mucous membranes Throat: Yes tonsils normal, Yes uvula midline, Yes posterior oropharynx abnormal (Erythema), Yes postnasal drainage and Yes cobblestoning Eyes General: appearance normal, both eyes and all related structures Neck Neck: Yes normal visual inspection Resp Effort & Inspection: normal respiratory effort, able to speak in complete sentences, Actively coughing, no respiratory distress, not tachypneic, no tripod positioning and no use of accessory muscles Auscultation: clear to auscultation bilaterally Cardio Rate: regular rate Rhythm: regular rhythm Heart sounds: normal S1 and S2 Skin General skin exam: no rashes or lesions noted, no ecchymosis and no erythema Neuro General: patient oriented x3 Cranial nerves: Yes CN's II-XII intact bilaterally Extrem Other: Tender to palpation along right trapezius muscle upper border, with increased muscle bulging to the region. Full range of motion of neck and shoulder. Intact distal neurovascular exam. General: Yes normal to inspection and Yes no clubbing, cyanosis or edema Assessment & Plan Assessment & Plan (1) Strain of right trapezius muscle: Code(s): S46.811A - Strain of other muscles, fascia and tendons at shoulder and upper arm level, right arm, initial encounter Qualifiers: Encounter type: initial encounter Qualified Code(s): S46.811A - Strain of other muscles, fascia and tendons at shoulder and upper arm level, right arm, initial encounter Plan: Advised heat/ice, HEP. Short course of muscle relaxers prescribed for bedtime use as needed. Additionally advised use of NSAIDs. Follow up as needed with worsening or failure to resolve. (2) Allergic rhinitis: Code(s): J30.9 - Allergic rhinitis, unspecified Qualifiers: Allergic rhinitis trigger: unspecified Allergic rhinitis seasonality: seasonal Qualified Code(s): J30.2 - Other seasonal allergic rhinitis Plan: Advised adding Flonase nasal spray to his at home Claritin. Consider sinus rinse, increase hydration. Follow up as needed with worsening or failure to resolve. Plan See above for full details and plan. Medications: New cyclobenzaprine 10 mg PO BEDTIME 5 days PRN 5 tabs 0RF muscle spasm Coding Level of Care Code Est Pt Level 3 (96090) Diagnoses Strain of right trapezius muscle, initial encounter S46.811A Encounter type: initial encounter Seasonal allergic rhinitis, unspecified trigger J30.2 Allergic rhinitis trigger: unspecified Allergic rhinitis seasonality: seasonal
== END 2023-10-29 10:08 | disposition home or self-care (01) ==
PROVIDERS: PCP Nurse Practitioner Family; Visit Provider Registered Nurse
DX: S46.811A Strain of other muscles, fascia and tendons at shoulder and upper arm level, right arm, initial encounter (principal); J30.2 Other seasonal allergic rhinitis
CPT/HCPCS: 99213

== ENCOUNTER 2024-01-28 08:25 | Outpatient (AMB) | payer BC, SELFPAY ==
--- NOTE | 2024-01-28 07:46 | MHC.OFFVIS ---
Intake Visit Reasons: anxiety Allergies No Known Allergies Allergy (Verified 01/28/24 07:46) Medication List - Last Reconciled 01/28/24 by Moises Lynn, [facility]- cholecalciferol (vitamin D3) 25 mcg PO DAILY citalopram 10 mg PO DAILY 30 days cyclobenzaprine 10 mg PO BEDTIME PRN 5 days loratadine (Claritin) 10 mg PO DAILY 90 days losartan 50 mg PO DAILY propranolol ER 80 mg PO DAILY HPI HPI anxiety: Details: History of Present Illness The patient is a 28-year-old male presenting with symptoms suggestive of depression and anxiety. Over the past few months, the patient has noticed an increase in procrastination, especially regarding activities that involve social interactions or speaking with strangers. The patient also reports experiencing a lack of motivation or drive to engage in activities that do not provide immediate gratification or satisfaction, which seems to impede completing necessary tasks. Despite no current diagnosis, the patient suspects these might be symptoms of underlying depressive and anxiety-related issues, as friends have encouraged a consultation for potential concerns. There have been no notable interventions attempted by the patient prior to this visit, aside from confiding in friends who have observed these behavioral changes. There is no mention of panic attacks, but the patient admits to avoiding contact with unfamiliar individuals due to discomfort and anxiety. The extent and progression of depressive symptoms include a general feeling of emotional blunting rather than extreme mood fluctuations, and there are no prior medication or therapy reports until now. Review of Systems - Psychiatric: Reports reluctance in talking to strangers, lack of motivation, self-reported suspicion of underlying anxiety and depressive symptoms. denies any si or hi Physical Exam General: No apparent distress, well nourished Head: Normocephalic Eyes: Non-icteric, pupils appear grossly symmetric Mouth: Moist mucous membranes, airway patent Neck: Trachea midline Lungs: No respiratory distress, speaks in full sentences Neurologic: Alert and cooperative, no dysarthria, face appears symmetric Psychiatric: Affect normal, thought pattern linear, patient reports low drive and social withdrawal, potential underlying depression or anxiety Skin: No facial diaphoresis, no gross jaundice, no visible rash on exposed skin Note: This physical exam was conducted in conjunction with the patient via our Telehealth platform. Plan - Generalized Anxiety Disorder: Initiate treatment with a selective serotonin reuptake inhibitor SSRI). The specific medication and dosage were discussed, with plans for reassessment of symptoms in approximately 6-8 weeks. Citalopram will be sent - Major Depressive Disorder: Monitor the response to SSRI treatment. Advise the patient to report any changes in mood, drive, or social interactions through the electronic health record EHR) portal or contact directly if significant issues arise. Patient was informed and verbally consented to the use of an ambient scribe for clinic note documentation during this visit. Discussion Notes I discussed with the patient the likelihood of generalized anxiety disorder and concurrent major depressive disorder, which are contributing to his reported symptoms. I recommended starting an SSRI medication, explaining its purpose, mechanisms, and potential effects. I described that noticeable improvement might not occur until several weeks into treatment, typically around 6 to 8 weeks, and initial side effects could include mild lethargy without significant adverse impacts. I assured him that the dose prescribed is low to begin, and adjustments could be made pending his response. I advised him of the importance of adherence to medication and encouraged communication about his status through the patient portal. Follow-up is planned for May, but I urged the patient to reach out sooner if symptoms persist or worsen. Furthermore, I emphasized the possibility of a more optimistic outlook and improved interactions with others as potential positive outcomes from treatment. Patient Instructions - Start the prescribed SSRI medication as directed at night. (starting citalopram) - Continue medication daily and be aware that full effects may take up to 8 weeks. - Monitor for any side effects and report through the patient portal if necessary. - Reach out to me in March through the portal to provide an update on symptoms. - Attend the scheduled follow-up appointment in May, or contact sooner if symptoms do not improve or worsen. PFSH Surgical History [place] teeth removed Family History Father Skin cancer HTN (hypertension) Social History Housing: House Alcohol intake: current Alcohol intake frequency: holidays/special occasions only Patient Tobacco Use Status: Never used Tobacco e-Cigarette/Vaping Use: Never Used Second Hand Smoke Exposure: No service: No Current occupational status: employed Current occupation: [employer] Current occupational exposures/hazards: No Cognitive needs: No Hearing needs: No Vision needs: No Telehealth Telehealth Telehealth Platform: [employer] Location of provider rendering services: practice address Location of patient: address on file Patient Identification confirmed using: Name, : Yes Telehealth method: video Patient verbally consented to treatment: Yes Patient verbally consented to billing insurance company: Yes Patient informed of any privacy concerns related to visit: Yes Minutes spent on Phone/Video with Pt.: 15 Assessment & Plan Assessment & Plan (1) Anxiety and depression: Code(s): F41.9 - Anxiety disorder, unspecified; F32.A - Depression, unspecified Category: Medical Plan . Medications: New citalopram 10 mg PO DAILY 30 days 30 tabs 2RF citalopram 10 mg PO DAILY 30 tabs 2RF 30 days Coding Level of Care Code Tele Est Pt Level 3 (64404) Diagnoses Anxiety and depression F41.9; F32.A
== END 2024-01-28 10:43 | disposition home or self-care (01) ==
LOC: HO.HMCC 08:25
PROVIDERS: PCP Nurse Practitioner Family; Visit Provider Nurse Practitioner Family
DX: F41.9 Anxiety disorder, unspecified (principal); F32.A Depression, unspecified

== ENCOUNTER 2024-05-27 10:07 | Outpatient (REF) | payer BC, SELFPAY ==
--- OUTSIDE RECORDS SUMMARY | 2024-05-27 11:28 | XMS_ITS | Encounter Summary ---
Author Organization [facility] Address [address] [place] [id number] Phone Care Team Providers Care Special Police Name Role Phone Evert Ann MD Primary Care Provider [phone] Encounter Details Date Type Department Care Team (Late st Contact Info) Description 10/09/2016 Documentation [facility] [place] [address] [place] [address] Family Medicine, Physician [address] [place], [place] [id number] Social History Tobacco Use Types Packs/Day Years Used Date Smoking Tobacco: Never Comments:Never smoker Sex and Gender Information Value Date Recorded Sex Assigned at Not on file Legal Sex Male 4:57 PM EDT Gender Identity Not on file Sexual Orientation Not on file documented as of this encounter Plan of Treatment Not on file documented as of this encounter Visit Diagnoses Not on filedocumented in this encounter Care Teams Special Police Relationship Specialty Start Date End Date Evert Ann MD [address] [place] [address] [place] [id number] PCP - General 10/03/16 07/24/22 documented as of this encounter
--- OUTSIDE RECORDS SUMMARY | 2024-05-27 11:28 | XMS_ITS | Encounter Summary ---
Author Organization [facility] Address [address] [place] [id number] Phone Care Team Providers Care Futures Trader Name Role Phone Evert Ann MD Primary Care Provider [phone] Encounter Details Date Type Department Care Team (Late st Contact Info) Description 08/17/2014 Documentation [facility] [place] Family Medicine [address] [place] [address] Family Medicine, Physician [address] [place], [place] [id number] Social History Tobacco Use Types Packs/Day Years [...] on filedocumented in this encounter Care Teams Futures Trader Relationship Specialty Start Date End Date Evert Ann MD [address] [place] [address] [place] [id number] PCP - General 10/03/16 07/24/22 documented as of this encounter
--- OUTSIDE RECORDS SUMMARY | 2024-05-27 11:28 | XMS_ITS | Encounter Summary ---
Author Organization [facility] Address [address] [place] [address] Phone Care Team Providers Care Bus Escort Name Role Phone Evert Ann MD Primary Care Provider [phone] Encounter Details Date Type Department Care Team (Late st Contact Info) Description 02/11/2013 Documentation [facility] [place] Family Medicine [address] [place] [address] Family Medicine, Physician [address] [place], [place] [id number] Social History Tobacco Use Types Packs/Day Years Used Date Smoking Tobacco: Never Assessed Sex and Gender Information Value Date Recorded Sex Assigned at Not on file Legal Sex Male 4:57 PM EDT Gender Identity Not on file Sexual Orientation Not on file documented as of this encounter Plan of Treatment Not on file documented as of this encounter Visit Diagnoses Not on filedocumented in this encounter Care Teams Bus Escort Relationship Specialty Start Date End Date Evert Ann MD [address] [place] [address] [place] [address] PCP - General 10/03/16 07/24/22 documented as of this encounter
--- OUTSIDE RECORDS SUMMARY | 2024-05-27 11:28 | XMS_ITS | Clinical Summary ---
Author Organization [facility] Address [address] [place] [address] Phone Care Team Providers Care Baster Hand Name Role Phone Unavailable Primary Care Provider Unavailabl e Immunizations Immunization Administration Dates Next Due DTP 06/29/1997, 7,05/02/1996, 997 DTaP 5 09/07/2000 H1N1 12/13/2008 HPV, Quadrivalent 08/16/2014,06/28/2013 Hep A, ped/adol 08/16/2014 Hep B, ped/adol 06/27/1996,02/29/1996,1995 Hib (PRP-T) 03/30/1997, 7,05/02/1996, 997 IPV 09/07/2000 Influenza Split 01/01/2010 Influenza, injectable, trivalent 11/25/2007,11/24,01/09/2006 MMR 09/07/2000,1996 Meningococcal Conj (Menactra) MCV4P 08/16/2014,0 08/23/2008 OPV 06/27/1996,05/02/1996,02/29/1996 Tdap 08/23/2008 Varicella 08/23/2008,1996 Family History Relation Name Status Comments Brother Brother: Health y Father Father: No Fami ly history of No history of Depression, Deafness, Elevated cholesterol Maternal Grandmother Materna l grandmother: Asthma Mother Mother: Hyperte nsion Other 1 Alive Family h/o: Ali ve and well Other 2 Family history of Obesity, Family history of Cancer, Family history of Diabetes mellitus, Family history of Hyperlipidemia Sister Alive Sister: Alive a nd well Social History Tobacco Use Types Packs/Day Years Used Date Smoking Tobacco: Never Comments:Never smoker Sex and Gender Information Value Date Recorded Sex Assigned at Not on file Legal Sex Male 4:57 PM EDT Gender Identity Not on file Sexual Orientation Not on file Last Filed Vital Signs Vital Sign Reading Time Taken Comments Blood Pressure 131/81 05/02/2016 12:00 AM EST Pulse 109 05/02/2016 12:00 AM EST Temperature 37.7 ??C (99.8 ??F) 05/02/2016 1 2:00 AM EST Respiratory Rate - - Oxygen Saturation - - Inhaled Oxygen Concentration - - Weight 91.1 kg (200 lb 12.8 oz) 017 12:00 AM EST Height 180.3 cm (5' 11 ) 08/16/2014 12: 00 AM EDT Body Mass Index 28.01 08/16/2014 12:00 AM EDT Plan of Treatment Health Maintenance Due Date Last Done Comments HPV Vaccines (3 - Male 3-dose series) 11/08/2014 08/16/2014, 06/28/2013 Hepatitis A Vaccines (2 of 2 - 2-dose series) 02/15/2015 08/16/2014 DTaP,Tdap,and Td Vaccines (7 - Td or Tdap) 08/23/2018 08/23/2008, 09/07/2000, 06/29/1997, Additional history exists Influenza Vaccines (#1) 2023 01/02/20, 11/25/2007, 12/17/2006, Additional history exists COVID-19 Vaccine ( season) 2023 Hepatitis B Vaccines Completed 06/27/1996, 02/29/1996, 1995 HIB Vaccines Completed 03/30/1997, 06/1996, 05/02/1996, Additional history exists IPV Vaccines Completed 09/07/2000, 06/1996, 05/02/1996, Additional history exists MMR Vaccines Completed 09/07/2000, 1996 Varicella Vaccines Completed 08/23/2008, 1996 Meningococcal Vaccine Completed 08/16/2014, 009 Men B Vaccine Aged Out No longer elig ible based on patient's age to complete this topic Pneumococcal Vaccine Aged Out No long er eligible based on patient's age to complete this topic
--- OUTSIDE RECORDS SUMMARY | 2024-05-27 11:28 | XMS_ITS | Encounter Summary ---
Author Organization [facility] Address [address] [place] [address] Phone Care Team Providers Care Cardiac Rn Name Role Phone Evert Ann MD Primary Care Provider [phone] Encounter Details Date Type Department Care Team (Late st Contact Info) Description 06/16/2013 Documentation [facility] [place] Family Medicine [address] [place] [address] Family Medicine, Physician [address] [place], [place] [phone] Social History Tobacco Use Types Packs/Day Years [...] on filedocumented in this encounter Care Teams Cardiac Rn Relationship Specialty Start Date End Date Evert Ann MD [address] [place] [address] [place] [address] PCP - General 10/03/16 07/24/22 documented as of this encounter
--- OUTSIDE RECORDS SUMMARY | 2024-05-27 11:28 | XMS_ITS | Encounter Summary ---
Author Organization [facility] Address [address] [place] [address] Phone Care Team Providers Care Chief Counsel Name Role Phone Evert Ann MD Primary Care Provider [phone] Encounter Details Date Type Department Care Team (Late st Contact Info) Description 06/29/2013 Documentation [facility] Family Medicine [address] [place] [address] Family Medicine, Physician [address] [place], [place] [phone] Social History Tobacco Use Types Packs/Day Years [...] on filedocumented in this encounter Care Teams Chief Counsel Relationship Specialty Start Date End Date Evert Ann MD [address] [place] [address] [place] [address] PCP - General 10/03/16 07/24/22 documented as of this encounter
--- OUTSIDE RECORDS SUMMARY | 2024-05-27 11:28 | XMS_ITS | Encounter Summary ---
Author Organization [facility] Address [address] [place] [address] Phone Care Team Providers Care Dairy Products Maker Name Role Phone Evert Ann MD Primary Care Provider [phone] Encounter Details Date Type Department Care Team (Late st Contact Info) Description 02/09/2013 Documentation [facility] [place] Family Medicine [address] [place] [address] Family Medicine, Physician [address] [place], [place] [phone] Social History Tobacco Use Types Packs/Day Years [...] on filedocumented in this encounter Care Teams Dairy Products Maker Relationship Specialty Start Date End Date Evert Ann MD [address] [place] [address] [place] [address] PCP - General 10/03/16 07/24/22 documented as of this encounter
--- OUTSIDE RECORDS SUMMARY | 2024-05-27 11:28 | XMS_ITS | Encounter Summary ---
Author Organization [facility] Address [address] [place] [address] Phone Care Team Providers Care Buyer Internship Name Role Phone Evert Ann MD Primary Care Provider [phone] Encounter Details Date Type Department Care Team (Late st Contact Info) Description 06/20/2013 Documentation [facility] [place] Family Medicine [address] [place] [address] Family Medicine, Physician [address] [place], [place] [phone] Social History Tobacco Use Types Packs/Day Years [...] on filedocumented in this encounter Care Teams Buyer Internship Relationship Specialty Start Date End Date Evetr Ann MD [address] [place] [address] [place] [address] PCP - General 10/03/16 07/24/22 documented as of this encounter
--- OUTSIDE RECORDS SUMMARY | 2024-05-27 11:28 | XMS_ITS | Encounter Summary ---
Author Organization [facility] Address [address] [place] [address] Phone Care Team Providers Care Reporter Anchor Name Role Phone Evert Ann MD Primary Care Provider [phone] Encounter Details Date Type Department Care Team (Late st Contact Info) Description 08/17/2014 Documentation [facility] [place] [address] [place] [address] Family Medicine, Physician [address] [place], [place] [phone] Social History Tobacco Use Types Packs/Day Years [...] on filedocumented in this encounter Care Teams Reporter Anchor Relationship Specialty Start Date End Date Evert Ann MD [address] [place] [address] [place] [address] PCP - General 10/03/16 07/24/22 documented as of this encounter
--- OUTSIDE RECORDS SUMMARY | 2024-05-27 11:28 | XMS_ITS | Encounter Summary ---
Author Organization [facility] Address [address] [place] [address] Phone Care Team Providers Care Associate Store Manager Name Role Phone Evert Ann MD Primary Care Provider [phone] Encounter Details Date Type Department Care Team (Late st Contact Info) Description 10/09/2016 Conversion Encounter [facility] [address] [place] [address] Social History Tobacco Use Types Packs/Day Years [...] on filedocumented in this encounter Care Teams Associate Store Manager Relationship Specialty Start Date End Date Evert Ann MD [address] [place] [address] PCP - General 10/03/16 07/24/22 documented as of this encounter
--- OUTSIDE RECORDS SUMMARY | 2024-05-27 11:28 | XMS_ITS | Encounter Summary ---
Author Organization [facility] Address [address] [place] [address] Phone Care Team Providers Care Carton Liner Name Role Phone Evert Ann MD Primary Care Provider [phone] Encounter Details Date Type Department Care Team (Late st Contact Info) Description 06/20/2013 Documentation [facility] [place] Family Medicine [address] [place] [address] Family Medicine, Physician [address] [place], [place] [phone] Social History Tobacco Use Types Packs/Day Years [...] on filedocumented in this encounter Care Teams Carton Liner Relationship Specialty Start Date End Date Evert Ann MD [address] [place] [address] [place] [address] PCP - General 10/03/16 07/24/22 documented as of this encounter
--- OUTSIDE RECORDS SUMMARY | 2024-05-27 11:28 | XMS_ITS | Encounter Summary ---
Author Organization [facility] Address [address] [place] [address] Phone Care Team Providers Care Stock Order Lister Name Role Phone Evert Ann MD Primary Care Provider [phone] Encounter Details Date Type Department Care Team (Late st Contact Info) Description 08/17/2014 Documentation [facility] [place] [address] [place] [address] Family Medicine, Physician [address] [place], [place] [phone] Social History Tobacco Use Types Packs/Day Years [...] on filedocumented in this encounter Care Teams Stock Order Lister Relationship Specialty Start Date End Date Evert Ann MD [address] [place] [address] [place] [address] PCP - General 10/03/16 07/24/22 documented as of this encounter
[2024-05-27 13:26] LABS: MANUAL DIFF FLAG NO
[2024-05-27 13:26] LABS: Appearance Urine Turbid; Color Urine Yellow; Glucose Urine UA Negative (Negative); Leukocyte Esterase Urine Negative (Negative); Nitrite Urine Negative (Negative); PH 5.5 (5.0-9.0); Urine Blood Negative (Negative); Urine Ketones Negative (Negative); Urine Protein Negative (Neg-Trace)
[2024-05-27 13:39] LABS: Basophils Absolute Auto 0.1 X10*3/uL (0.0-0.2); Basophils Percent Auto 0.8 % (0-2); Eosinophils Absolute Auto 0.1 X10*3/uL (0.0-0.4); Eosinophils Percent Auto 1.2 % (0-4); Hematocrit 49.2 % (42.0-52.0); Hemoglobin 15.8 g/dl (14.0-18.0); Imm Gran Abs Auto 0.06 X10*3/uL (0.00-0.03); Imm Gran Pct Auto 0.7 % (0.0-0.4); Lymphocytes Absolute Auto 2.3 X10*3/uL (1.2-4.9); Lymphocytes Percent Auto 25.5 % (20-40); Mean Corpuscular HGB Conc 32.1 g/dl (31.0-36.0); Mean Corpuscular Hemoglobin 27.6 pg (27.0-33.0); Mean Corpuscular Volume 85.9 fL (80.0-98.0); Mean Platelet Volume 10.9 fL (9.4-12.4); Monocytes Absolute Auto 0.7 X10*3/uL (0.1-1.2); Monocytes Percent Auto 7.3 % (2-11); Neutrophils Absolute Auto 5.9 x10*3/uL (2.0-8.3); Neutrophils Percent Auto 64.5 % (45-73); Platelet Count 269 X10*3/uL (160-400); Red Blood Count 5.73 X10*6/uL (4.60-5.80); Red Cell Distribution Width 12.7 % (11.0-16.0); White Blood Count 9.2 X10*3/uL (4.8-10.8)
[2024-05-27 14:20] LABS: Alanine Aminotransferase 26 U/L (0-40); Albumin Level 4.5 g/dL (3.5-5.0); Alkaline Phosphatase 84 U/L (39-117); Anion Gap 12 (12-20); Aspartate Amino Transferase 26 U/L (5-37); Bilirubin Total 0.8 mg/dL (0.0-1.0); Blood Urea Nitrogen 14 mg/dL (9-16); Calcium 9.8 mg/dL (8.4-10.2); Carbon Dioxide 29 mmol/L (22-29); Chloride 107 mmol/L (96-108); Cholesterol 152 mg/dL (<200); Estimated Glomerular Filt Rate > 60; Glucose Fasting 91 mg/dL (60-99); HDL Cholesterol 37 mg/dL (>40); LDL Cholesterol Calculated 96 mg/dL (<100); Potassium 4.6 mmol/L (3.3-5.1); Sodium 143 mmol/L (135-145); Total Protein 7.2 g/dL (6.5-8.0); Triglycerides 96 mg/dL (<150)
[2024-05-27 14:22] LABS: Vitamin D 25-OH Total 89.2 ng/mL (>30)
== END 2024-05-27 10:08 | disposition home or self-care (01) ==
LOC: HO.HMGCLDS 10:07
PROVIDERS: PCP Nurse Practitioner Family; Visit Provider Nurse Practitioner Family
DX: Z00.00 Encounter for general adult medical examination without abnormal findings (principal)
CPT/HCPCS: 36415; 80053; 80061; 81003; 82306; 84443; 85025

== ENCOUNTER 2024-06-02 10:13 | Outpatient (AMB) | payer BC, SELFPAY ==
[2024-06-02 10:16] VITALS: BP 118/86; PULSE 74; O2SAT 99; BMI 31.5
--- NOTE | 2024-06-02 10:16 | A.OFFPC_ITS ---
Vital Signs 06/02/24 10:16 Height 6 ft Weight 232 lb 8 oz BMI 31.5 BP 118/86 Blood Pressure Location Lt brachial Position Sitting Pulse 74 Pulse Source Pulse Oximeter Pulse Oximetry (%) 99 Oxygen Delivery Method Room Air Intake Visit Reasons: PE w/ labs Allergies No Known Allergies Allergy (Verified 06/02/24 10:16) Medication List - Last Reconciled 06/02/24 by BREN FonsecaP- buspirone 5 mg PO BID 30 days cholecalciferol (vitamin D3) 25 mcg PO DAILY loratadine (Claritin) 10 mg PO DAILY 90 days losartan 50 mg PO DAILY propranolol ER 80 mg PO DAILY Tobacco use date assessed: 06/02/24 Dental Screening Dental Screen Date: 06/02/24 Did you have a dental visit in the last 12 months?: Yes Did you have a dental problem in the last 6 months where you did not have access to dental care?: No Was dental information given to patient?: Patient has dentist HPI PE w/ labs HPI Details History of Present Illness The patient is a 28-year-old male presenting with intermittent chest discomfort, pointing specifically to the mid-sternum. He reports no exacerbation of pain with movement or palpation of the torso. Previous evaluations, including a stress test and echocardiogram, were negative. A recent EKG remains unchanged. He denies shortness of breath. The patient also reports having anxiety. He tried citalopram but did not find it suitable, and the medication was subsequently discontinued. skin tag, gets caught on my shirt allergies, reports breathing through his mouth, ? deviated septum. Health Maintenance Social History Review of Systems - Respiratory: Denies shortness of breat h. - Gastrointestinal: Denies nausea, vomit ing, diarrhea, blood in stool, and constipation. - Psychiatric: Reports anxiety; denies s uicidal or homicidal ideation. Physical Exam General: Cooperative, healthy appearing, comfortable, no acute distress and well developed Orientation: Patient oriented x3 Limitations: No limitations Head: Normal to inspection Ears: Hearing grossly normal bilaterally Nose: Normal external nose present Face and sinus: Normal facial exam Eyes: Appearance normal, both eyes and all related structures Neck: Normal visual inspection and Yes full ROM Respiratory: Normal respiratory effort and able to speak in complete sentences. Clear to auscultation bilaterally Cardiovascular: Regular rate and rhythm. Normal S1 and S2 GI: Normal to inspection. Soft to palpation and nontender Skin: dark skin tag to left chest. no pain with palpation of sternal reason, or pain with turning upper torso side to side Neuro: Patient oriented x3 Extremities: Normal to inspection Results - Tests and Diagnostics: Stress test and echocardiogram both negative; no changes noted on EKG. Plan The intermittent chest discomfort has been evaluated with a previously negative stress test and echocardiogram, along with today's unchanged EKG, pointing away from a cardiac origin. A precautionary chest X-ray is planned. For the management of anxiety, buspirone is being initiated at a low dose due to previous intolerance to citalopram, with close monitoring for efficacy and tolerability. Discussion Notes I discussed with the patient that the likely non-cardiac nature of his chest discomfort is supported by the negative results from the stress test, echocardiogram, and today's unchanged EKG. I explained that the chest X-ray is meant to rule out structural issues. For his anxiety, I recommended starting buspirone due to his prior intolerance to citalopram and have detailed the benefits of this medication compared to potential side effects. I encouraged him to report any side effects promptly and agreed to follow up to monitor the efficacy of the treatment and adjust as necessary. Patient Instructions - Begin taking the prescribed buspirone at the directed low dose. - Report any side effects or concerns wi th the medication. - Monitor chest discomfort and seek care if symptoms worsen. - Attend any follow-up appointments as s cheduled. - Undergo the chest X-ray as ordered. -try cetirizine up to 20mg twice a day f or allergies -reach out via portal with response to m eds in approx 2 weeks [facility] Surgical History [place] teeth removed Family History Father Skin cancer HTN (hypertension) Social History Housing: House Alcohol intake: current Alcohol intake frequency: holidays/special occasions only Patient Tobacco Use Status: Never used Tobacco e-Cigarette/Vaping Use: Never Used Second Hand Smoke Exposure: No service: No Current occupational status: employed Current occupation: [employer] Current occupational exposures/hazards: No Cognitive needs: No Hearing needs: No Vision needs: No Questionnaire PHQ-9 Over the last 2 weeks, how often have you been bothered by any of the following problems? 1. Little interest or pleasure in doing things: not at all 2. Feeling down, depressed, or hopeless: several days 3. Trouble falling or staying asleep, or sleeping too much: not at all 4. Feeling tired or having little energy: several days 5. Poor appetite or overeating: not at all 6. Feeling bad about yourself - or that you are a failure or have let yourself or your family down: several days 7. Trouble concentrating on things, such as reading the newspaper or watching television: not at all 8. Moving or speaking so slowly that other people could have noticed. Or the opposite - being so fidgety or restless that you have been moving around a lot more than usual: not at all 9. Thoughts that you would be better off or of hurting yourself in some way: not at all Total score: 3 Depression Screening Interpretation: Negative Depression Screening Done: Yes 77323 - PHQ-9 Billing: Yes Source: Developed by Drs. Mario English, Becca Rehman, Natalio Gunderson and colleagues, with an educational maxine from [employer]. Thrive Questionnaire Date Thrive assessed: 06/02/24 I am a: Patient What is your living situation today?: I have a steady place to live Within the past 12 months, did the food you bought not last and you didn't have the money to get more?: Never true Within the past 12 months, did you worry whether your food would run out before you got money to buy more?: Never true Do you have trouble paying for medicines?: No Do you have trouble getting transportation to medical appointments?: No Do you have trouble paying your heating and electricity bill?: No Do you have trouble taking care of your child, family member or friend?: No Do you have trouble with day-to-day activities such as bathing, preparing meals, shopping, managing finances, etc.?: No Are you currently unemployed and looking for a job?: No Are you interested in more education?: Yes Please select the resources that you would like help with: None Currently or been in a relationship where the following occur: No concerns reported THRIVE Score: 0 AUDIT C Alcohol Use Questionnaire (AUDIT-C) 1. How often do you have a drink containing alcohol?: 2-4 times a month 2. How many drinks containing alcohol do you have on a typical day when you are drinking?: 1 or 2 3. How often do you have six or more drinks on one occasion?: Less than monthly Total Score: 3 Score Reviewed/Action Taken: Yes LIAM-7 AMB Questionnaire LIAM-7 Date LIAM - 7 assessed: 06/02/24 Feeling nervous, anxious, or on edge: 2 = More than half the days Not being able to stop or control worryin = More than half the days Worrying too much about different things: 2 = More than half the days Trouble relaxin = Several days Being so restless that it is hard to sit still: 1 = Several days Becoming easily annoyed or irritable: 0 = Not at all Feeling afraid as if something awful might happen: 1 = Several days Total LIAM-7 score (0-4 normal; 5-9 mild; 10-14 moderate; 15-21 severe): 9 Source: Developed by Drs. Mario English, Becca Rehman, Natalio Gunderson and colleagues, with an educational maxine from [employer]. LIAM-7 Assessment Billing LIAM-7 Assessment Tool: LIAM-7 Assessment 28664 Physical exam (Primary Care) Vital Signs: Last Vital Signs Pulse 74 06/02/24 10:16 BP 118/86 06/02/24 10:16 Pulse Ox 99 06/02/24 10:16 Oxygen Delivery Method Room Air 06/02/24 10:16 BMI result Body Mass Index 31.5 Tobacco/Smoking Status: Tobacco use Status Tobacco use date assessed 06/02/24 06/02/24 10:22 Patient Tobacco Use Status Never used Tobacco 06/02/24 10:22 e-Cigarette/Vaping Use Never Used 06/02/24 10:22 PHQ-9: PHQ-9 Score PHQ-9: Total score 3 06/02/24 10:22 Depression Screening Interpretation: Negative Thrive Assessment: Date of Thrive Assessment Date Thrive assessed 06/02/24 06/02/24 10:22 Currently or been in a relationship where the following occur: No concerns reported Coding Level of Care Code Est Pt Prev Care 18-39y(48410) Diagnoses Physical exam Z00.00 Skin tag L91.8 Chest discomfort R07.89 Additional Codes LIAM-7 Assessment Billing - LIAM-7 Assessment Tool: LIAM-7 Assessment 97433 ([id number]) PHQ-9 - 97932 - PHQ-9 Billing: Yes ([id number]) Assessment & Plan Assessment & Plan (1) Physical exam: Code(s): Z00.00 - Encounter for general adult medical examination without abnormal findings Category: Medical (2) Skin tag: Code(s): L91.8 - Other hypertrophic disorders of the skin Category: Medical (3) Chest discomfort: Code(s): R07.89 - Other chest pain Category: Medical Plan . Orders: Referrals Dermatology Referral L91.8 - Other hypertrophic disorders of the skin Medications: New buspirone 5 mg PO BID 30 days 60 tabs 3RF
--- OUTSIDE RECORDS SUMMARY | 2024-06-02 11:58 | XMS_ITS | Encounter Summary ---
Author Organization [facility] Address [address] [place] [address] Phone Care Team Providers Care Salesperson Flying Squad Name Role Phone Evert Ann MD Primary Care Provider [phone] Encounter Details Date Type Department Care Team (Late st Contact Info) Description 08/17/2014 Documentation [facility] [place] Family Medicine [address] [place] [address] Family Medicine, Physician [address] [place], [place] [phone] Social History Tobacco Use Types Packs/Day Years [...] on filedocumented in this encounter Care Teams Salesperson Flying Squad Relationship Specialty Start Date End Date Evert Ann MD [address] [place] [address] [place] [address] PCP - General 10/03/16 07/24/22 documented as of this encounter
--- OUTSIDE RECORDS SUMMARY | 2024-06-02 11:58 | XMS_ITS | Encounter Summary ---
Author Organization [facility] Address [address] [place] [address] Phone Care Team Providers Care Elevator Constructor Electric Name Role Phone Evert Ann MD Primary Care Provider [phone] Encounter Details Date Type Department Care Team (Late st Contact Info) Description 08/17/[address] [facility] [place] Family Medicine [address] [place] [address] Family Medicine, Physician [address] [place], [place] [phone] Social History Tobacco Use Types Packs/Day Years [...] on filedocumented in this encounter Care Teams Elevator Constructor Electric Relationship Specialty Start Date End Date Evert Ann MD [address] [place] [address] [place] [address] PCP - General 10/03/16 07/24/22 documented as of this encounter
--- OUTSIDE RECORDS SUMMARY | 2024-06-02 11:58 | XMS_ITS | Clinical Summary ---
Author Organization [facility] Address [address] [place] [address] Phone Care Team Providers Care Operation Manager Name Role Phone Unavailable Primary Care Provider [...]
--- OUTSIDE RECORDS SUMMARY | 2024-06-02 11:58 | XMS_ITS | Encounter Summary ---
Author Organization [facility] Address [address] [place] [address] Phone Care Team Providers Care In Shop Service Technician Name Role Phone Evert Ann MD Primary Care Provider [phone] Encounter Details Date Type Department Care Team (Late st Contact Info) Description 06/20/2013 Documentation [facility] [place] Family Medicine [address] [place] [address] Family Medicine, Physician [address] [place], [place] [phone] Social History Tobacco Use Types Packs/Day Years [...] on filedocumented in this encounter Care Teams In Shop Service Technician Relationship Specialty Start Date End Date Evert Ann MD [address] [place] [address] [place] [address] PCP - General 10/03/16 07/24/22 documented as of this encounter
--- OUTSIDE RECORDS SUMMARY | 2024-06-02 11:58 | XMS_ITS | Encounter Summary ---
Author Organization [facility] Address [address] [place] [address] Phone Care Team Providers Care Cosmetology Educator Name Role Phone Evert Ann MD Primary Care Provider [phone] Encounter Details Date Type Department Care Team (Late st Contact Info) Description 06/16/2013 Documentation [facility] [place] [address] [place] [address] Family Medicine, Physician [address] [place], [place] [phone] Social History Tobacco Use Types Packs/Day Years [...] on filedocumented in this encounter Care Teams Cosmetology Educator Relationship Specialty Start Date End Date Evert Ann MD [address] [place] [address] [place] [address] PCP - General 10/03/16 07/24/22 documented as of this encounter
--- OUTSIDE RECORDS SUMMARY | 2024-06-02 11:58 | XMS_ITS | Encounter Summary ---
Author Organization [facility] Address [address] [place] [address] Phone Care Team Providers Care Kettle Cook Name Role Phone Evert Ann MD Primary Care Provider [phone] Encounter Details Date Type Department Care Team (Late st Contact Info) Description 06/20/2013 Documentation [facility] [place] Family Medicine [address] [place] [address] Family Medicine, Physician [address] [place], [place] [phone] Social History Tobacco Use Types Packs/Day Years [...] on filedocumented in this encounter Care Teams Kettle Cook Relationship Specialty Start Date End Date Evert Ann MD [address] [place] [address] [place] [address] PCP - General 10/03/16 07/24/22 documented as of this encounter
--- OUTSIDE RECORDS SUMMARY | 2024-06-02 11:58 | XMS_ITS | Encounter Summary ---
Author Organization [facility] Address [address] [place] [address] Phone Care Team Providers Care Hydraulic Jack Operator Name Role Phone Evert Ann MD Primary Care Provider [phone] Encounter Details Date Type Department Care Team (Late st Contact Info) Description 06/29/2013 Documentation [facility] [place] [address] [place] [address] Family Medicine, Physician [address] [place], [place] [phone] Social History Tobacco Use Types Packs/Day Years [...] on filedocumented in this encounter Care Teams Hydraulic Jack Operator Relationship Specialty Start Date End Date Evert Ann MD [address] [place] [address] [place] [address] PCP - General 10/03/16 07/24/22 documented as of this encounter
--- OUTSIDE RECORDS SUMMARY | 2024-06-02 11:58 | XMS_ITS | Encounter Summary ---
Author Organization [facility] Address [address] [place] [address] Phone Care Team Providers Care Beautician Apprentice Name Role Phone Evret Ann MD Primary Care Provider [phone] Encounter Details Date Type Department Care Team (Late st Contact Info) Description 08/17/2014 [place] [facility] [place] [address] [place] [address] Family Medicine, Physician [address] [place], [place] [phone] Social History Tobacco Use Types Packs/Day Years [...] on filedocumented in this encounter Care Teams Beautician Apprentice Relationship Specialty Start Date End Date Evert Ann MD [address] [place] [address] [place] [address] PCP - General 10/03/16 07/24/22 documented as of this encounter
--- OUTSIDE RECORDS SUMMARY | 2024-06-02 11:58 | XMS_ITS | Encounter Summary ---
Author Organization [facility] Address [address] [place] [address] Phone Care Team Providers Care Mosaic Tile Maker Name Role Phone Evert Ann MD Primary Care Provider [phone] Encounter Details Date Type Department Care Team (Late st Contact Info) Description 10/09/2016 Conversion Encounter [facility] [place] [address] [place] [address] Social History Tobacco Use Types Packs/Day Years [...] on filedocumented in this encounter Care Teams Mosaic Tile Maker Relationship Specialty Start Date End Date Evert Ann MD [address] [place] [address] PCP - General 10/03/16 07/24/22 documented as of this encounter
--- OUTSIDE RECORDS SUMMARY | 2024-06-02 11:58 | XMS_ITS | Encounter Summary ---
Author Organization [facility] Address [address] [place] [address] Phone Care Team Providers Care Vending Machine Collector Name Role Phone Evert Ann MD Primary Care Provider [phone] Encounter Details Date Type Department Care Team (Late st Contact Info) Description 10/09/2016 Documentation [facility] [place] [address] [place] [address] Family Medicine, Physician [address], [place] [phone] Social History Tobacco Use Types Packs/Day Years [...] on filedocumented in this encounter Care Teams Vending Machine Collector Relationship Specialty Start Date End Date Evert Ann MD [address] [place] [address] [place] [address] PCP - General 10/03/16 07/24/22 documented as of this encounter
--- OUTSIDE RECORDS SUMMARY | 2024-06-02 11:58 | XMS_ITS | Encounter Summary ---
Author Organization [facility] Address [address] [place] [address] Phone Care Team Providers Care Grant Administrator Name Role Phone Evert Ann MD Primary Care Provider [phone] Encounter Details Date Type Department Care Team (Late st Contact Info) Description 02/09/2013 Documentation [facility] [place] [address] [place] [address] Family Medicine, Physician [address] [place], [place] [phone] Social History Tobacco Use Types Packs/Day Years [...] on filedocumented in this encounter Care Teams Grant Administrator Relationship Specialty Start Date End Date Evert Ann MD [address] [place] [address] [place] [address] PCP - General 10/03/16 07/24/22 documented as of this encounter
--- OUTSIDE RECORDS SUMMARY | 2024-06-02 11:58 | XMS_ITS | Encounter Summary ---
Author Organization [facility] Address [address] [place] [address] Phone Care Team Providers Care Complaint Clerk Name Role Phone Evert Ann MD Primary Care Provider [phone] Encounter Details Date Type Department Care Team (Late st Contact Info) Description 02/11/2013 Documentation [facility] [place] [address] [place] [address] Family Medicine, Physician [address] [place], [place] [phone] Social History Tobacco Use Types Packs/Day Years [...] on filedocumented in this encounter Care Teams Complaint Clerk Relationship Specialty Start Date End Date Evert Ann MD [address] [place] [address] [place] [address] PCP - General 10/03/16 07/24/22 documented as of this encounter
== END 2024-06-02 11:41 | disposition home or self-care (01) ==
LOC: HO.HMCC 10:14
PROVIDERS: PCP Nurse Practitioner Family; Visit Provider Nurse Practitioner Family
DX: Z00.00 Encounter for general adult medical examination without abnormal findings (principal); L91.8 Other hypertrophic disorders of the skin; R07.89 Other chest pain

== ENCOUNTER → 2024-06-02 10:13 | Outpatient (BNVA) | payer BC, SELFPAY | PROVIDERS: PCP Nurse Practitioner Family; Visit Provider Nurse Practitioner Family | DX: Z00.01 Encounter for general adult medical examination with abnormal findings (principal); L91.8 Other hypertrophic disorders of the skin; R07.89 Other chest pain | CPT/HCPCS: 96127 ==

== ENCOUNTER 2024-11-29 10:24 | Outpatient (AMB) | payer BC, SELFPAY ==
[2024-11-29 10:26] VITALS: BP 96/60; PULSE 67; RESP 18; TEMP 36.6; O2SAT 98; BMI 31.1
--- NOTE | 2024-11-29 10:26 | A.OFFPC_ITS ---
Vital Signs 11/29/24 10:26 11/29/24 10:52 Height 6 ft Weight 229 lb BMI 31.1 BP 96/60 96/60 Blood Pressure Location Rt brachial Lt brachial Position Sitting Sitting Respiration 18 Pulse 67 Pulse Source Pulse Oximeter Temp 97.9 F Temp Source Oral Pulse Oximetry (%) 98 Oxygen Delivery Method Room Air Intake Visit Reasons: 6m follow up Intake Note: Pt is here today for 6 months follow up visit. Allergies No Known Allergies Allergy (Verified 11/29/24 10:28) Medication List - Last Reconciled 11/29/24 by Moises Lynn COMMUNICATIONS EDITOR- cholecalciferol (vitamin D3) 25 mcg PO DAILY loratadine (Claritin) 10 mg PO DAILY 90 days losartan 50 mg PO DAILY propranolol ER 80 mg PO DAILY Tobacco use date assessed: 06/02/24 Dental Screening Dental Screen Date: 06/02/24 HPI 6m follow up HPI Details Chief Complaint The patient presents for follow-up regarding hypertension management. History of Present Illness The patient is a 28-year-old male presenting with hypertension management. He is currently on losartan and propranolol, and reports no dizziness, especially upon standing, and feels well overall. He recently switched to night shifts, with the first shift being last night, resulting in significant fatigue today. The patient was advised to stay hydrated as he may not be adequately hydrating, and to monitor his blood pressure at home. He was instructed to report any dizziness or persistently low blood pressure readings. The patient describes his sleep pattern in a manner suggestive of sleep apnea, prompting a referral for a sleep study and back to sleep medicine. He denies experiencing chest pain, shortness of breath, headache, or blurred vision. Social History - Employment: Recently switched to night shifts, first shift was last night. Health Maintenance Review of Systems - Cardiovascular: Denies dizziness, ches t pain. - Respiratory: Denies shortness of breat h. - Neurological: Denies headache, blurred vision. Physical Exam General: Cooperative, healthy appearing, comfortable, no acute distress and well developed Orientation: Patient oriented x3 Limitations: No limitations Head: Normal to inspection Ears: Hearing grossly normal bilaterally Nose: Normal external nose present Face and sinus: Normal facial exam Eyes: Appearance normal, both eyes and all related structures Neck: Normal visual inspection and Yes full ROM Respiratory: Normal respiratory effort and able to speak in complete sentences. Clear to auscultation bilaterally Cardiovascular: Regular rate and rhythm. Normal S1 and S2 GI: Normal to inspection. Soft to palpation and nontender Skin: No rashes or lesions noted Neuro: Patient oriented x3 Extremities: Normal to inspection Results Plan 1. Hypertension The patient is advised to continue current medications, losartan and propranolol, and monitor blood pressure at home. He should report any dizziness or persistently low blood pressure readings. pt encouraged to get labs drawn in the near future 2. Suspected Sleep Apnea The patient is referred for a sleep study and to sleep medicine for further evaluation of suspected sleep apnea. Discussion Notes I discussed with the patient the importance of monitoring his blood pressure at home and staying hydrated, especially after switching to night shifts. We also talked about the potential for sleep apnea and the need for a sleep study and referral to sleep medicine. Patient Instructions - Continue taking losartan and propranol ol as prescribed. - Monitor blood pressure at home regular ly. - Stay hydrated, especially after night shifts. - Report any dizziness or low blood pres sure readings. - Follow up with sleep medicine for a sl eep study. [facility] Surgical History (Reviewed 11/29/24 @ 10:43 by Moises Lynn [facility] [place] teeth removed Family History Father Skin cancer HTN (hypertension) Social History Housing: House Alcohol intake: current Alcohol intake frequency: holidays/special occasions only Patient Tobacco Use Status: Never used Tobacco e-Cigarette/Vaping Use: Never Used Second Hand Smoke Exposure: No service: No Current occupational status: employed Current occupation: [employer] Current occupational exposures/hazards: No Cognitive needs: No Hearing needs: No Vision needs: No Questionnaire PHQ-9 Over the last 2 weeks, how often have you been bothered by any of the following problems? 1. Little interest or pleasure in doing things: not at all 2. Feeling down, depressed, or hopeless: several days 3. Trouble falling or staying asleep, or sleeping too much: not at all 4. Feeling tired or having little energy: several days 5. Poor appetite or overeating: not at all 6. Feeling bad about yourself - or that you are a failure or have let yourself or your family down: several days 7. Trouble concentrating on things, such as reading the newspaper or watching television: not at all 8. Moving or speaking so slowly that other people could have noticed. Or the opposite - being so fidgety or restless that you have been moving around a lot more than usual: not at all 9. Thoughts that you would be better off or of hurting yourself in some way: not at all Total score: 3 Depression Screening Interpretation: Negative Depression Screening Done: Yes Source: Developed by Drs. Mario English, Becca Rehman, Natalio Gunderson and colleagues, with an educational maxine from [employer]. Thrive Questionnaire Date Thrive assessed: 06/02/24 I am a: Patient What is your living situation today?: I have a steady place to live Within the past 12 months, did the food you bought not last and you didn't have the money to get more?: Never true Within the past 12 months, did you worry whether your food would run out before you got money to buy more?: Never true Do you have trouble paying for medicines?: No Do you have trouble getting transportation to medical appointments?: No Do you have trouble paying your heating and electricity bill?: No Do you have trouble taking care of your child, family member or friend?: No Do you have trouble with day-to-day activities such as bathing, preparing meals, shopping, managing finances, etc.?: No Are you currently unemployed and looking for a job?: No Are you interested in more education?: Yes Please select the resources that you would like help with: None Currently or been in a relationship where the following occur: No concerns reported THRIVE Score: 0 LIAM-7 AMB Questionnaire LIAM-7 Date LIAM - 7 assessed: 06/02/24 Feeling nervous, anxious, or on edge: 2 = More than half the days Not being able to stop or control worryin = More than half the days Worrying too much about different things: 2 = More than half the days Trouble relaxin = Several days Being so restless that it is hard to sit still: 1 = Several days Becoming easily annoyed or irritable: 0 = Not at all Feeling afraid as if something awful might happen: 1 = Several days Total LIAM-7 score (0-4 normal; 5-9 mild; 10-14 moderate; 15-21 severe): 9 Source: Developed by Drs. Mario English, Becca Rehman, Natalio Gunderson and colleagues, with an educational maxine from [employer]. LIAM-7 Assessment Billing LIAM-7 Assessment Tool: LIAM-7 Assessment 77504 Physical exam (Primary Care) Vital Signs: Last Vital Signs Temp 97.9 F 11/29/24 10:26 Pulse 67 11/29/24 10:26 Resp 18 11/29/24 10:26 BP 96/60 11/29/24 10:52 Pulse Ox 98 11/29/24 10:26 Oxygen Delivery Method Room Air 11/29/24 10:26 BMI result Body Mass Index 31.1 Tobacco/Smoking Status: Tobacco use Status Tobacco use date assessed 06/02/24 11/29/24 10:26 Patient Tobacco Use Status Never used Tobacco 11/29/24 10:26 e-Cigarette/Vaping Use Never Used 11/29/24 10:26 PHQ-9: PHQ-9 Score PHQ-9: Total score 3 11/29/24 10:53 Depression Screening Interpretation: Negative Thrive Assessment: Date of Thrive Assessment Date Thrive assessed 06/02/24 11/29/24 10:26 Currently or been in a relationship where the following occur: No concerns rep orted Coding Level of Care Code Est Pt Level 3 (21214) Diagnoses HTN (hypertension) I10 Sleep apnea G47.30 Loud snoring R06.83 Additional Codes LIAM-7 Assessment Billing - LIAM-7 Assessment Tool: LIAM-7 Assessment 86863 ([id number]) Assessment & Plan Assessment & Plan (1) HTN (hypertension): Code(s): I10 - Essential (primary) hypertension Category: Medical (2) Sleep apnea: Code(s): G47.30 - Sleep apnea, unspecified Category: Medical (3) Loud snoring: Code(s): R06.83 - Snoring Category: Medical Plan . Orders: Orders TSH reflex Free T4 Today I10 - Essential (primary) hypertension Complete Blood Count Auto Diff Today I10 - Essential (primary) hypertension Comprehensive [place]. Panel Fast Today I10 - Essential (primary) hypertension UA CC w/rflx Micro + Cult Today I10 - Essential (primary) hypertension Lipid Panel Today I10 - Essential (primary) hypertension Referrals Sleep Medicine Referral G47.30 - Sleep apnea, unspecified, R06.83 - Snoring
[2024-11-29 10:52] VITALS: BP 96/60
--- OUTSIDE RECORDS SUMMARY | 2024-11-29 12:32 | XMS_ITS | Encounter Summary ---
Author Organization [facility] Address [address] [place] [address] Phone Care Team Providers Care Books Binder Name Role Phone Evert Ann MD Primary Care Provider Kahtryn tam Encounter Details Date Type Department Care Team (Late st Contact Info) Description 08/17/2014 Documentation [facility] [place] Family Medicine [address] [place], [place] [phone] Family Medicine, Physician [address] [place], [place] [address] Social History Tobacco Use Types Packs/Day Years [...] on filedocumented in this encounter Care Teams Books Binder Relationship Specialty Start Date End Date Evert Ann MD PCP - General 10/03/16 07/24/22 documented as of this encounter
--- OUTSIDE RECORDS SUMMARY | 2024-11-29 12:32 | XMS_ITS | Encounter Summary ---
Author Organization [facility] Address [address] [place] [address] Phone Care Team Providers Care Apprentice Painter Neckties Name Role Phone Evert Ann MD Primary Care Provider Kathryn tam Encounter Details Date Type Department Care Team (Late st Contact Info) Description 06/20/2013 Documentation [facility] [place] [address] [place] [address] Family Medicine, Physician [address] [place], [place] [phone] Social History Tobacco Use Types Packs/Day Years [...] on filedocumented in this encounter Care Teams Apprentice Painter Neckties Relationship Specialty Start Date End Date Evert Ann MD PCP - General 10/03/16 07/24/22 documented as of this encounter
--- OUTSIDE RECORDS SUMMARY | 2024-11-29 12:32 | XMS_ITS | Encounter Summary ---
Author Organization [facility] Address [address] [place] [address] Phone Care Team Providers Care Engraving Operator Name Role Phone Evert Ann MD Primary Care Provider Kathryn tam Encounter Details Date Type Department Care Team (Late st Contact Info) Description 10/09/2016 Conversion Encounter [facility] - [address] [address] Social History Tobacco Use Types Packs/Day Years [...] on filedocumented in this encounter Care Teams Engraving Operator Relationship Specialty Start Date End Date Evert Ann MD PCP - General 10/03/16 07/24/22 documented as of this encounter
--- OUTSIDE RECORDS SUMMARY | 2024-11-29 12:32 | XMS_ITS | Encounter Summary ---
Author Organization [facility] Address [address] [place] [address] Phone Care Team Providers Care Check Weigher Name Role Phone Evert Ann MD Primary Care Provider Kathryn tam Encounter Details Date Type Department Care Team (Late st Contact Info) Description 02/09/[address] [facility] [place] Family [place] [address] [place] [address] Family Medicine, Physician [address] [place], [place] [address] Social History Tobacco Use Types Packs/Day Years [...] on filedocumented in this encounter Care Teams Check Weigher Relationship Specialty Start Date End Date Evert Ann MD PCP - General 10/03/16 07/24/22 documented as of this encounter
--- OUTSIDE RECORDS SUMMARY | 2024-11-29 12:32 | XMS_ITS | Encounter Summary ---
Author Organization [facility] Address [address] [place] [address] Phone Care Team Providers Care Social Science Teacher Name Role Phone Evert Ann MD Primary Care Provider Kathryn tam Encounter Details Date Type Department Care Team (Late st Contact Info) Description 08/17/2014 Documentation [facility] [place] [address] [place], [place] [phone] Family Medicine, Physician [address] [place], [place] [address] Social History Tobacco Use Types Packs/Day Years [...] on filedocumented in this encounter Care Teams Social Science Teacher Relationship Specialty Start Date End Date Evert Ann MD PCP - General 10/03/16 07/24/22 documented as of this encounter
--- OUTSIDE RECORDS SUMMARY | 2024-11-29 12:32 | XMS_ITS | Encounter Summary ---
Author Organization [facility] Address [address] [place] [address] Phone Care Team Providers Care Cloth Finishing Range Tender Name Role Phone Evert Ann MD Primary Care Provider Kathryn tam Encounter Details Date Type Department Care Team (Late st Contact Info) Description 06/16/2013 Documentation [facility] [place] [address] [place] [address] Family Medicine, Physician [address] [place], [place] 4459[address] Social History Tobacco Use Types Packs/Day Years [...] on filedocumented in this encounter Care Teams Cloth Finishing Range Tender Relationship Specialty Start Date End Date Evert Ann MD PCP - General 10/03/16 07/24/22 documented as of this encounter
--- OUTSIDE RECORDS SUMMARY | 2024-11-29 12:32 | XMS_ITS | Encounter Summary ---
Author Organization [facility] Address [address] [place] [address] Phone Care Team Providers Care First Helper Name Role Phone Evert Ann MD Primary Care Provider Kathryn tam Encounter Details Date Type Department Care Team (Late st Contact Info) Description 06/29/2013 Documentation [facility] [place] [address] [place] [address] Family Medicine, Physician [address] [place], [place] [address] Social History Tobacco Use Types Packs/Day Years [...] on filedocumented in this encounter Care Teams First Helper Relationship Specialty Start Date End Date Evert Ann MD PCP - General 10/03/16 07/24/22 documented as of this encounter
--- OUTSIDE RECORDS SUMMARY | 2024-11-29 12:32 | XMS_ITS | Encounter Summary ---
Author Organization [facility] Address [address] [place] [address] Phone Care Team Providers Care Fire Protection Fabricator Name Role Phone Evert Ann MD Primary Care Provider Kathryn tam Encounter Details Date Type Department Care Team (Late st Contact Info) Description 02/11/2013 Documentation [facility] [place] [facility] [place] [address] [place] [address] Family Medicine, Physician [address] [place], [place] [address]36[address] Social History Tobacco Use Types Packs/Day Years [...] on filedocumented in this encounter Care Teams Fire Protection Fabricator Relationship Specialty Start Date End Date Evert Ann MD PCP - General 10/03/16 07/24/22 documented as of this encounter
--- OUTSIDE RECORDS SUMMARY | 2024-11-29 12:32 | XMS_ITS | Clinical Summary ---
Author Organization [facility] Address [address] [place] [address] Phone Care Team Providers Care Call Worker Person Name Role Phone Unavailable Primary Care Provider [...] 109 05/02/2016 12:00 AM EST Temperature 37.7 C (99.8 F) 05/02/2016 12:00 AM EST Respiratory Rate - - Oxygen [...] 06/29/1997, Additional history exists Influenza Vaccines (#1) 2024 01/02/20, 11/25/2007, 12/17/2006, Additional history exists COVID-19 Vaccine (2024- season) 2024 Hepatitis B Vaccines Completed 06/27/1996, 02/29/1996, 1995 HIB Vaccines Completed 03/30/1997, 06/1996, 05/02/1996, Additional history exists IPV Vaccines Completed 09/07/2000, 0 06/1996, 05/02/1996, Additional history exists MMR Vaccines Completed 09/07/2000, 1996 Varicella Vaccines Completed 08/23/2008, 1996 Meningococcal Vaccine Completed 08/16/2014, 009 Men B Vaccine Aged Out No longer elig ible based on patient's age to complete this topic Pneumococcal Vaccine Aged Out No long er eligible based on patient's age to complete this topic
--- OUTSIDE RECORDS SUMMARY | 2024-11-29 12:32 | XMS_ITS | Encounter Summary ---
Author Organization [facility] Address [address] [place] [address] Phone Care Team Providers Care Application Technician Name Role Phone Evert Ann MD Primary Care Provider Kathryn tam Encounter Details Date Type Department Care Team (Late st Contact Info) Description 10/09/2016 Documentation [facility] [place] [address] [place] [address] Family Medicine, Physician [address] [place], [place] [address] Social History Tobacco Use Types Packs/Day Years [...] on filedocumented in this encounter Care Teams Application Technician Relationship Specialty Start Date End Date Evert Ann MD PCP - General 10/03/16 07/24/22 documented as of this encounter
--- OUTSIDE RECORDS SUMMARY | 2024-11-29 12:32 | XMS_ITS | Encounter Summary ---
Author Organization [facility] Address [address] [place] [address] Phone Care Team Providers Care Strain Technician Name Role Phone Evert Ann MD Primary Care Provider Kathryn tam Encounter Details Date Type Department Care Team (Late st Contact Info) Description 06/20/2013 Documentation [facility] [place] Family Medicine [address] [place] [address] Family Medicine, Physician [address] [place], [place] [address] Social History Tobacco Use Types Packs/Day Years [...] on filedocumented in this encounter Care Teams Strain Technician Relationship Specialty Start Date End Date Evert Ann MD PCP - General 10/03/16 07/24/22 documented as of this encounter
--- OUTSIDE RECORDS SUMMARY | 2024-11-29 12:32 | XMS_ITS | Encounter Summary ---
Author Organization [facility] Address [address] [place] [address] Phone Care Team Providers Care Trackwalker Name Role Phone Evert Ann MD Primary Care Provider Kathryn tam Encounter Details Date Type Department Care Team (Late st Contact Info) Description 08/17/2014 Documentation [facility] [place] Family Medicine [address] [place], [place] [id number] Family Medicine, Physician [address] [place], [place] [phone] Social History Tobacco Use Types Packs/Day Years [...] on filedocumented in this encounter Care Teams Trackwalker Relationship Specialty Start Date End Date Evert Ann MD PCP - General 10/03/16 07/24/22 documented as of this encounter
== END 2024-11-29 11:01 | disposition home or self-care (01) ==
LOC: HO.HMCC 10:25
PROVIDERS: PCP Nurse Practitioner Family; Visit Provider Nurse Practitioner Family
DX: I10 Essential (primary) hypertension (principal); G47.30 Sleep apnea, unspecified; R06.83 Snoring

== ENCOUNTER → 2024-11-29 10:24 | Outpatient (BNVA) | payer BC, SELFPAY | PROVIDERS: PCP Nurse Practitioner Family; Visit Provider Nurse Practitioner Family | DX: I10 Essential (primary) hypertension (principal); G47.30 Sleep apnea, unspecified; R06.83 Snoring; Z79.899 Other long term (current) drug therapy | CPT/HCPCS: 96127 ==

== ENCOUNTER 2025-01-04 07:59 | Outpatient (AMB) | payer BC, SELFPAY ==
[2025-01-04 08:01] VITALS: BP 132/88; PULSE 56; TEMP 36.6; O2SAT 97; BMI 30.9
--- NOTE | 2025-01-04 08:01 | MHC.OFFWIV ---
Intake Vital Signs 01/04/25 08:01 Height 6 ft Weight 228 lb BMI 30.9 BP 132/88 Blood Pressure Location Lt brachial Position Sitting Pulse 56 Pulse Source Pulse Oximeter Temp 98 F Temp Source Oral Pulse Oximetry (%) 97 Oxygen Delivery Method Room Air Intake Visit Reasons: ep rt neck pain radiate up rt side of head Intake Note: Patient presents with c/o right side neck pain that radiates up into right side of head x5 days. Patient Tobacco Use Status: Never used Tobacco Allergies No Known Allergies Allergy (Verified 01/04/25 08:03) Do you need a note to return to daycare/school/sports/work: Yes HPI HPI Comments History of Present Illness Details Patient is a 29yo M who presents with R shoulder/neck pain Ongoing x a few days Occured after heavy lifting He is R hand dominant but denies any radiculopathy, numbness, weakness RUE No CP or SOB States intermittent sharp headache R side that radiates from his neck No vision changes, ear pain, rashes, dizziness Denies syncope Has tried Ibuprofen which helps Sometimes he is without pain; occurs randomly and varies in intensity Currently in office he only has aching in R trap region, no headache or superior neck pain Has used warm compress which helps No worsening factors PFSH Surgical History Honaker teeth removed Family History Father Skin cancer HTN (hypertension) Social History Housing: House Alcohol intake: current Alcohol intake frequency: holidays/special occasions only Patient Tobacco Use Status: Never used Tobacco e-Cigarette/Vaping Use: Never Used Second Hand Smoke Exposure: No service: No Current occupational status: employed Current occupation: [employer] Current occupational exposures/hazards: No Cognitive needs: No Hearing needs: No Vision needs: No Review of Systems Const Denies chills, Denies fever(s) and Reports headache(s) Eyes Denies blurry vision and Denies change in vision ENT Denies dizziness, Reports headache(s), Denies nasal discharge, Reports neck pain and Denies sore throat Card Denies chest pain, Denies syncope and Denies dyspnea Resp Denies cough and Denies dyspnea GI Denies vomiting Musc Reports neck pain, Denies numbness, Denies stiffness and Denies tingling Skin/Breast Denies rash Neuro Denies confusion, Denies dizziness, Denies syncope, Reports headache(s), Denies numbness and Denies tingling Psych Denies confusion Physical Exam Exam Exam: General: Non-toxic, NAD. Speaking full sentences. Skin: Warm dry throughout. No neck edema, swelling or rashes to scalp or R side neck Eye: EOMI, PERRLA Oral: Airway patent. Uvula midline. No pharyngeal erythema or edema. No MARKETING COMMUNICATIONS SPECIALIST. Neck: No c-spine tenderness. No thyroid enlargement. No carotid bruits Ears: Bilateral canals clear. TM non-erythematous, non-bulging. No TM perforation or hemotympanum noted. Respiratory: CTA bilaterally. No wheezes, rales or rhonchi Cardiac: RRR. No murmur. Radial pulse intact MSK: Full ROM extremities. No midline c spine tenderness. + R trapezius muscle ttp. No cervical paraspinal ttp. No ttp R side scalp or mastoid bone. No joint ttp R shoulder, elbow. + full ROM R shoulder, elbow. 5/5 team primary care physician strength Neurology: A/O. CN 2-12 grossly intact. No aphasia or facial droop. Gait without abnormality Psych: Good mood and affect Vital Signs: Last Vital Signs Temp 98 F 01/04/25 08:01 Pulse 56 01/04/25 08:01 BP 132/88 01/04/25 08:01 Pulse Ox 97 01/04/25 08:01 Oxygen Delivery Method Room Air 01/04/25 08:01 BMI result Body Mass Index 30.9 Const General: No confusion Orientation/consciousness: No confusion Neuro General: No confusion Assessment & Plan Assessment & Plan (1) Tension headache: Code(s): G44.209 - Tension-type headache, unspecified, not intractable Plan: No neurological deficit Discussed warning s/s to monitor for and when to seek ER (2) Trapezius muscle strain: Code(s): S46.819A - Strain of other muscles, fascia and tendons at shoulder and upper arm level, unspecified arm, initial encounter Qualifiers: Encounter type: initial encounter Laterality: right Qualified Code(s): S46.811A - Strain of other muscles, fascia and tendons at shoulder and upper arm level, right arm, initial encounter Plan: Patient seen and evaluated. Non-toxic appearing No neuro deficit + reproduciple R trapezius ttp RObaxin (+lethargy, no alclohol or driving) Warm compress and Ibuprofen prn OTC x 1-2 weeks Gentle stretch F/U with PCP ER s/s discussed and patient gave verbal understanding and had no additional questions or concerns at time of discharge All questions answered Medications: New methocarbamol 750 mg PO BEDTIME 10 tabs 0RF Coding Level of Care Code Est Pt Level 3 (16431) Diagnoses Tension headache G44.209 Strain of right trapezius muscle, initial encounter S46.811A Encounter type: initial encounter Laterality: right
--- OUTSIDE RECORDS SUMMARY | 2025-01-04 08:02 | XMS_ITS | Encounter Summary ---
Author Organization [facility] Address [address] [place] [address] Phone Care Team Providers Care Fisher Weir Name Role Phone Evert Ann MD Primary Care Provider Kathryn tam Encounter Details Date Type Department Care Team (Late st Contact Info) Description 02/11/2013 Documentation [facility] [place] Family Medicine [address] [place] [address] Family Medicine, Physician [address] [place], [place] [address] Social History Tobacco Use Types Packs/Day Years [...] on filedocumented in this encounter Care Teams Fisher Weir Relationship Specialty Start Date End Date Evert Ann MD PCP - General 10/03/16 07/24/22 documented as of this encounter
--- OUTSIDE RECORDS SUMMARY | 2025-01-04 08:02 | XMS_ITS | Encounter Summary ---
Author Organization [facility] Address [address] [place] [address] Phone Care Team Providers Care Fur Stylist Name Role Phone Evert Ann MD Primary Care Provider Kathryn tam Encounter Details Date Type Department Care Team (Late st Contact Info) Description 08/17/2014 Documentation [facility] [place] [address] [place], [place] [phone] Family Medicine, Physician [address] [place], [place] [address] Social History Tobacco Use Types Packs/Day Years [...] on filedocumented in this encounter Care Teams Fur Stylist Relationship Specialty Start Date End Date Evert Ann MD PCP - General 10/03/16 07/24/22 documented as of this encounter
--- OUTSIDE RECORDS SUMMARY | 2025-01-04 08:02 | XMS_ITS | Encounter Summary ---
Author Organization [facility] Address [address] [place] [address] Phone Care Team Providers Care Supervisor Forming Department Name Role Phone Evert Ann MD Primary Care Provider Kathryn tam Encounter Details Date Type Department Care Team (Late st Contact Info) Description 08/17/2014 Documentation [facility] [place] Family Medicine [address] [place], [place] [phone] Family Medicine, Physician [address] [place], [place] [address] Social History Tobacco Use Types Packs/Day Years [...] on filedocumented in this encounter Care Teams Supervisor Forming Department Relationship Specialty Start Date End Date Evert Ann MD PCP - General 10/03/16 07/24/22 documented as of this encounter
--- OUTSIDE RECORDS SUMMARY | 2025-01-04 08:02 | XMS_ITS | Encounter Summary ---
Author Organization [facility] Address [address] [place] [address] Phone Care Team Providers Care Inspector Tubes Name Role Phone Evert Ann MD Primary Care Provider Kathryn tam Encounter Details Date Type Department Care Team (Late st Contact Info) Description 06/20/2013 Documentation [facility] [place] Family Medicine [address] [place] [address] Family Medicine, Physician [address] [place], [place] [address] Social History Tobacco Use Types Packs/Day Years [...] on filedocumented in this encounter Care Teams Inspector Tubes Relationship Specialty Start Date End Date Evert Ann MD PCP - General 10/03/16 07/24/22 documented as of this encounter
--- OUTSIDE RECORDS SUMMARY | 2025-01-04 08:02 | XMS_ITS | Encounter Summary ---
Author Organization [facility] Address [address] [place] [address] Phone Care Team Providers Care Polisher Brass Name Role Phone Evert Ann MD Primary Care Provider Kathryn tam Encounter Details Date Type Department Care Team (Late st Contact Info) Description 10/09/2016 [place] [facility] [place] [address] [place] [address] Family Medicine, Physician [address] [place], [place] [address] Social History Tobacco Use Types Packs/Day Years [...] on filedocumented in this encounter Care Teams Polisher Brass Relationship Specialty Start Date End Date Evert Ann MD PCP - General 10/03/16 07/24/22 documented as of this encounter
--- OUTSIDE RECORDS SUMMARY | 2025-01-04 08:02 | XMS_ITS | Encounter Summary ---
Author Organization [facility] Address [address] [place] [address] Phone Care Team Providers Care Ultrasound Supervisor Name Role Phone Evert Ann MD Primary Care Provider Kathryn tam Encounter Details Date Type Department Care Team (Late st Contact Info) Description 02/09/2013 Documentation [facility] [place] [address] [place] [address] Family Medicine, Physician [address] [place], [place] [address] Social History Tobacco Use Types Packs/Day Years [...] on filedocumented in this encounter Care Teams Ultrasound Supervisor Relationship Specialty Start Date End Date Evert Ann MD PCP - General 10/03/16 07/24/22 documented as of this encounter
--- OUTSIDE RECORDS SUMMARY | 2025-01-04 08:02 | XMS_ITS | Clinical Summary ---
Author Organization [facility] Address [address] [place] [address] Phone Care Team Providers Care Fire Equipment Inspector Name Role Phone Unavailable Primary Care Provider [...]
--- OUTSIDE RECORDS SUMMARY | 2025-01-04 08:02 | XMS_ITS | Encounter Summary ---
Author Organization [facility] Address [address] [place] [address] Phone Care Team Providers Care Shoulder Puncher Name Role Phone Evert Ann MD Primary Care Provider Kathryn tam Encounter Details Date Type Department Care Team (Late st Contact Info) Description 06/16/2013 Documentation [facility] [place] Family Medicine [address] [place] [address] Family Medicine, Physician [address] [place], [place] [address]80[address] Social History Tobacco Use Types Packs/Day Years [...] on filedocumented in this encounter Care Teams Shoulder Puncher Relationship Specialty Start Date End Date Evert Ann MD PCP - General 10/03/16 07/24/22 documented as of this encounter
--- OUTSIDE RECORDS SUMMARY | 2025-01-04 08:02 | XMS_ITS | Encounter Summary ---
Author Organization [facility] Address [address] [place] [address] Phone Care Team Providers Care Assigner Name Role Phone Evert Ann MD Primary Care Provider Kathryn tam Encounter Details Date Type Department Care Team (Late st Contact Info) Description 08/17/2014 Documentation [facility] [place] [address] [place], [place] [phone] Family Medicine, Physician [address] [place], [place] [address] Social History Tobacco Use Types Packs/Day Years [...] on filedocumented in this encounter Care Teams Assigner Relationship Specialty Start Date End Date Evert Ann MD PCP - General 10/03/16 07/24/22 documented as of this encounter
--- OUTSIDE RECORDS SUMMARY | 2025-01-04 08:02 | XMS_ITS | Encounter Summary ---
Author Organization [facility] Address [address] [place] [address] Phone Care Team Providers Care Reamer Hand Name Role Phone Evert Ann MD Primary Care Provider Kathryn tam Encounter Details Date Type Department Care Team (Late st Contact Info) Description 10/09/2016 Conversion Encounter [facility] - [address] [address] Social History Tobacco Use Types Packs/Day Years [...] on filedocumented in this encounter Care Teams Reamer Hand Relationship Specialty Start Date End Date Evert Ann MD PCP - General 10/03/16 07/24/22 documented as of this encounter
--- OUTSIDE RECORDS SUMMARY | 2025-01-04 08:02 | XMS_ITS | Encounter Summary ---
Author Organization [facility] Address [address] [place] [address] Phone Care Team Providers Care Transaction Advisory Services Manager Name Role Phone Evert Ann MD Primary Care Provider Kathryn tam Encounter Details Date Type Department Care Team (Late st Contact Info) Description 06/29/2013 Documentation [facility] [place] Family Medicine [address] [place] [address] Family Medicine, Physician [address] [place], [place] [address] Social History Tobacco Use Types Packs/Day Years [...] on filedocumented in this encounter Care Teams Transaction Advisory Services Manager Relationship Specialty Start Date End Date Evert Ann MD PCP - General 10/03/16 07/24/22 documented as of this encounter
--- OUTSIDE RECORDS SUMMARY | 2025-01-04 08:02 | XMS_ITS | Encounter Summary ---
Author Organization [facility] Address [address] [place] [address] Phone Care Team Providers Care Accounting Advisory Services Manager Name Role Phone Evert Ann MD Primary Care Provider Kathryn tam Encounter Details Date Type Department Care Team (Late st Contact Info) Description 06/20/2013 Documentation [facility] [place] Family Medicine [address] [place] [address] Family Medicine, Physician [address] [place], [place] [address] Social History Tobacco Use Types Packs/Day Years [...] on filedocumented in this encounter Care Teams Accounting Advisory Services Manager Relationship Specialty Start Date End Date Evert Ann MD PCP - General 10/03/16 07/24/22 documented as of this encounter
== END 2025-01-04 08:26 | disposition home or self-care (01) ==
PROVIDERS: PCP Nurse Practitioner Family; Visit Provider Physician Assistant
DX: G44.209 Tension-type headache, unspecified, not intractable (principal); S46.811A Strain of other muscles, fascia and tendons at shoulder and upper arm level, right arm, initial encounter